=== PATIENT | male | born 1975 | race Caucasian/White ===

== ENCOUNTER → 2016-04-28 | Outpatient (CLI) | payer MEDICAID | END | disposition home or self-care (01) | LOC: LAB 16:42 | PROVIDERS: ATTEND Internal Medicine Critical Care Medicine | DX: G47.33 Obstructive sleep apnea (adult) (pediatric) (principal) | CPT/HCPCS: 82607; 82728; 82746; 83540; 83550 ==

== ENCOUNTER → 2016-06-16 | Outpatient (CLI) | payer MEDICAID ==
[2016-06-16 08:42] LABS: Basophils % (A) 1 %; CH 28.1; CHCM 33.3; Eosinophils # (A) 0.2 k/uL (0-0.7); Eosinophils % (A) 3 %; HCT 44.3 % (39.0-53.0); HDW 2.89; HGB 14.4 gm/dL (13.0-17.5); Luc # (Auto) 0.09; Luc % (Auto) 2; Lymphocytes # (A) 0.6 k/uL (1.0-4.8); Lymphocytes % (A) 12 %; MCH 27.6 pg (25.0-35.0); MCHC 32.5 g/dL (31.0-37.0); MCV 84.7 fL (80.0-100.0); Monocytes # (A) 0.2 k/uL (0-1.0); Monocytes % (A) 5 %; Neutrophils # (A) 3.7 k/uL (1.3-7.7); Neutrophils % (A) 78 %; RBC 5.23 m/uL (4.30-5.90); RDW 13.3 % (11.5-15.5); WBC 4.8 k/uL (3.8-10.6); WBC (Perox) 4.91
[2016-06-16 11:02] LABS: Hemoglobin A1C 5.1 % (4.2-6.1)
[2016-06-16 11:26] LABS: ALT 40 U/L (21-72); AST 24 U/L (17-59); Alkaline Phosphatase 71 U/L (38-126); Anion Gap 8 mmol/L; Blood Urea Nitrogen 8 mg/dL (9-20); Calcium 8.9 mg/dL (8.4-10.2); Carbon Dioxide 30 mmol/L (22-30); Chloride 104 mmol/L (98-107); Cholesterol 133 mg/dL (<200); Glucose 105 mg/dL (74-99); HDL Cholesterol 42 mg/dL (40-60); Non-African American GFR(MDRD) >60 (>60 ml/min/1.73 sqM); Sodium 142 mmol/L (137-145); Total Bilirubin 0.5 mg/dL (0.2-1.3); Total Protein 6.4 g/dL (6.3-8.2); Triglycerides 80 mg/dL (<150)
[2016-06-16 11:27] LABS: Potassium 4.4 mmol/L (3.5-5.1)
[2016-06-16 11:53] LABS: Prostate Specific Antigen 0.99 ng/mL (0.00-4.00)
== END | disposition home or self-care (01) ==
LOC: LABWHC1 08:03
PROVIDERS: ATTEND Internal Medicine Geriatric Medicine
DX: I10 Essential (primary) hypertension (principal); E78.00 Pure hypercholesterolemia, unspecified; E03.8 Other specified hypothyroidism; N40.0 Benign prostatic hyperplasia without lower urinary tract symptoms; R73.9 Hyperglycemia, unspecified
CPT/HCPCS: 36415; 80053; 80061; 83036; 84153; 84439; 84443; 85025

== ENCOUNTER 2016-07-14 21:32 | Inpatient (IN) | payer MEDICAID ==
[2016-07-14 23:23] LABS: Basophils % (A) 0 %; CH 28.6; CHCM 35.6; Eosinophils # (A) 0.1 k/uL (0-0.7); Eosinophils % (A) 1 %; HCT 46.4 % (39.0-53.0); HDW 3.04; HGB 16.4 gm/dL (13.0-17.5); Luc # (Auto) 0.09; Luc % (Auto) 1; Lymphocytes # (A) 0.3 k/uL (1.0-4.8); Lymphocytes % (A) 3 %; MCH 28.5 pg (25.0-35.0); MCHC 35.5 g/dL (31.0-37.0); MCV 80.4 fL (80.0-100.0); Mean Platelet Volume 7.2; Monocytes # (A) 0.5 k/uL (0-1.0); Monocytes % (A) 4 %; Neutrophils # (A) 10.1 k/uL (1.3-7.7); Neutrophils % (A) 91 %; RBC 5.77 m/uL (4.30-5.90); WBC 11.1 k/uL (3.8-10.6); WBC (Perox) 10.89
[2016-07-14 23:27] LABS: Appearance,Urine Clear (Clear); Bilirubin,Urine Negative (Negative); Glucose,Urine (UA) Negative (Negative); Ketones,Urine Negative (Negative); Leukocyte Esterase,Urine Negative (Negative); Nitrite,Urine Negative (Negative); Protein,Urine Trace (Negative); UA Billing (MACRO vs. MICRO) CHEM; Urobilinogen,Urine <2.0 mg/dL (<2.0)
[2016-07-14 23:32] LABS: ALT 42 U/L (21-72); AST 29 U/L (17-59); Alkaline Phosphatase 85 U/L (38-126); Anion Gap 14 mmol/L; Blood Urea Nitrogen 11 mg/dL (9-20); Calcium 9.3 mg/dL (8.4-10.2); Carbon Dioxide 23 mmol/L (22-30); Chloride 103 mmol/L (98-107); Glucose 105 mg/dL (74-99); Magnesium 1.7 mg/dL (1.6-2.3); Non-African American GFR(MDRD) >60 (>60 ml/min/1.73 sqM); Potassium 3.9 mmol/L (3.5-5.1); Sodium 140 mmol/L (137-145); Total Bilirubin 1.7 mg/dL (0.2-1.3)
[2016-07-14] MEDS ORDERED: FAMOTIDINE 20 MG/2 ML VIAL IV STA (23:34)
[2016-07-14] MEDS ORDERED: ONDANSETRON 4 MG/2 ML VIAL IVP STA (23:34)
--- NOTE | 2016-07-14 23:35 | ED ---
General Adult HPI - General Chief complaint: Abdominal Pain Stated complaint: wekaness, poss flu Time Seen by Provider: 07/14/16 23:15 Source: patient, RN notes reviewed Mode of arrival: ambulatory Limitations: no limitations - History of Present Illness Initial comments: This is a 41-year-old male who presents with cough, congestion, headache and sore throat along with nausea and diarrhea. Patient states the cough and congestion started on Tuesday and the diarrhea started yesterday. Patient reports chills but denies any measured fevers. Patient states he has an ileostomy which has been producing more liquid stool usual. Patient denies any hematochezia. Patient denies any vomiting but does admit to some mild nausea. Patient also admits to a headache and sore throat. Patient states he does have abdominal pain but he describes it as crampy and related to the diarrhea symptoms. Patient states he has a history of gastric sleeve. Patient denies any recent shortness breath, chest pain, back pain, numbness, tingling, hematuria, or visual changes, or any other complaints. - Related Data Home Medications Medication Instructions Recorded Confirmed Ascorbic Acid [Vitamin C] 500 mg PO DAILY 07/14/16 07/14/16 Calcium/Magnesium/Zinc 1 tab PO DAILY 07/14/16 07/14/16 [Qiythjw-Cqxhwpusv-Ijli Tablet] Doxycycline Hyclate 100 mg PO DAILY 07/14/16 07/14/16 clonazePAM [KlonoPIN] 0.5 mg PO HS 07/14/16 07/14/16 Allergies Allergy/AdvReac Type Severity Reaction Status Date / Time sulfamethoxazole AdvReac Vomiting Verified 07/14/16 21:58 [From Bactrim] trimethoprim [From Bactrim] AdvReac Vomiting Verified 07/14/16 21:58 Review of Systems ROS Statement: Those systems with pertinent positive or pertinent negative responses have been documented in the HPI. ROS Other: All systems not noted in ROS Statement are negative. Past Medical History Past Medical History: No Reported History History of Any Multi-Drug Resistant Organisms: None Reported Past Surgical History: Bariatric Surgery, Cholecystectomy Additional Past Surgical History / Comment(s): ileostomy Past Psychological History: No Psychological Hx Reported Smoking Status: Never smoker Past Alcohol Use History: None Reported Past Drug Use History: None Reported General Exam - General Exam Comments Initial Comments: General: The patient is awake and alert, in no distress, and does not appear acutely ill. Eye: Pupils are equal, round and reactive to light, extra-ocular movements are intact. No nystagmus. There is normal conjunctiva bilaterally. No signs of icterus. Ears: TMs pink and pearly with intact cone of light bilaterally. Normal external ear canals Nose: Nasal turbinates pink and moist Mouth and throat: There are moist mucous membranes and no oral lesions. Neck: The neck is supple, there is no tenderness or JVD. Cardiovascular: There is a regular rate and rhythm. No murmur, rub or gallop is appreciated. Respiratory: Lungs are clear to auscultation, respirations are non-labored, breath sounds are equal. No wheezes, stridor, rales, or rhonchi. Gastrointestinal: Mild generalized tenderness to the abdomen. Ileostomy present and intact. Clear loose stool present in ileostomy. Soft, non- distended abdomen without masses or organomegaly noted. There is no rebound or guarding present. No CVA tenderness. Bowel sounds are unremarkable. Musculoskeletal: Normal ROM, no tenderness. Strength 5/5. Sensation intact. Radial pulses equal bilaterally 2+. Neurological: A&O x 3. CN II-XII intact, There are no obvious motor or sensory deficits. Coordination appears grossly intact. Speech is normal. Skin: Skin is warm and dry and no rashes or lesions are noted. Psychiatric: Cooperative, appropriate mood & affect, normal judgment. Limitations: no limitations Course Vital Signs 07/14/16 07/15/16 07/15/16 21:40 00:02 02:03 Temperature 99.2 F 98.9 F 98.4 F Pulse Rate 18 L 104 H 103 H Respiratory 18 18 18 Rate Blood Pressure 132/88 128/77 128/77 O2 Sat by Pulse 96 95 94 L Oximetry 07/15/16 02:33 Temperature 98.3 F Pulse Rate 106 H Respiratory 20 Rate Blood Pressure 127/81 O2 Sat by Pulse 96 Oximetry Medical Decision Making - Medical Decision Making This is a 41-year-old male presents with flulike symptoms along with diarrhea and nausea. On physical exam patient is well-appearing and afebrile in the EC. Mild generalized tenderness to the abdomen. Ileostomy present and intact. Clear loose stool present. Soft, non-distended abdomen without masses or organomegaly noted. There is no rebound or guarding present. No CVA tenderness. Bowel sounds are unremarkable. Basic labs are drawn and reviewed. Patient is given fluids in the EC. Patient was given Pepcid and Zofran. Influenza was checked and came back negative. A UA was done and came back negative for any urinary tract infection. Chest x- ray is done and reviewed showing: No active cardiopulmonary disease. Normal heart. Report by Dr. Mccurdy. Patient is still having a lot of abdominal pain after Pepcid and Zofran and patient is given IV Dilaudid, Phenergen and another liter of fluids. Patient was feeling relief after this. A CT of the abdomen and pelvis with contrast was done and reviewed showing: #1 postsurgical changes including subtotal colectomy and right-sided diverting ileostomy. As above, scattered borderline prominent air and fluid-filled small bowel loops for which the possibility of a low-grade or incomplete small bowel obstruction is not excluded. #2 previous gastric banding, with mild distal esophageal wall thickening that may represent mild esophagitis. #3 additional findings as above includes mild splenomegaly. Report by Dr. Villanueva. At this time I discussed this case with attending physician Dr. Malik who also examined the patient and agrees with patient admission. Dr. Heredia spoke with Dr. Echols regarding patient admission for surgical consult, NPO and pain control. At this time patient will be admitted as an inpatient. Patient was receptive to this plan. - Lab Data Result diagrams: 07/14/16 22:39 07/14/16 22:39 Lab Results 07/14/16 07/14/16 07/14/16 Range/Units 22:39 22:39 22:39 WBC 11.1 H (3.8-10.6) k/uL RBC 5.77 (4.30-5.90) m/uL Hgb 16.4 (13.0-17.5) gm/dL Hct 46.4 (39.0-53.0) % MCV 80.4 (80.0-100.0) fL MCH 28.5 (25.0-35.0) pg MCHC 35.5 (31.0-37.0) g/dL RDW 14.0 (11.5-15.5) % Plt Count 166 (150-450) k/uL Neutrophils % 91 % Lymphocytes % 3 % Monocytes % 4 % Eosinophils % 1 % Basophils % 0 % Neutrophils # 10.1 H (1.3-7.7) k/uL Lymphocytes # 0.3 L (1.0-4.8) k/uL Monocytes # 0.5 (0-1.0) k/uL Eosinophils # 0.1 (0-0.7) k/uL Basophils # 0.0 (0-0.2) k/uL Sodium 140 (137-145) mmol/L Potassium 3.9 (3.5-5.1) mmol/L Chloride 103 (98-107) mmol/L Carbon Dioxide 23 (22-30) mmol/L Anion Gap 14 mmol/L BUN 11 (9-20) mg/dL Creatinine 1.10 (0.66-1.25) mg/dL Est GFR (MDRD) Af Amer >60 (>60 ml/min/1.73 sqM) Est GFR (MDRD) Non-Af >60 (>60 ml/min/1.73 sqM) Glucose 105 H (74-99) mg/dL Plasma Lactic Acid Mau (0.7-2.0) mmol/L Calcium 9.3 (8.4-10.2) mg/dL Magnesium 1.7 (1.6-2.3) mg/dL Total Bilirubin 1.7 H (0.2-1.3) mg/dL AST 29 (17-59) U/L ALT 42 (21-72) U/L Alkaline Phosphatase 85 (38-126) U/L Total Protein 7.0 (6.3-8.2) g/dL Albumin 4.2 (3.5-5.0) g/dL Amylase (30-110) U/L Lipase (23-300) U/L Urine Color Yellow Urine Appearance Clear (Clear) Urine pH 6.0 (5.0-8.0) Ur Specific Malott 1.020 (1.001-1.035) Urine Protein Trace H (Negative) Urine Glucose (UA) Negative (Negative) Urine Ketones Negative (Negative) Urine Blood Negative (Negative) Urine Nitrite Negative (Negative) Urine Bilirubin Negative (Negative) Urine Urobilinogen <2.0 (<2.0) mg/dL Ur Leukocyte Esterase Negative (Negative) Influenza Type A RNA (Not Detectd) Influenza Type B (PCR) (Not Detectd) 07/14/16 07/14/1617 Range/Units 22:39 22:39 22:39 WBC (3.8-10.6) k/uL RBC (4.30-5.90) m/uL Hgb (13.0-17.5) gm/dL Hct (39.0-53.0) % MCV (80.0-100.0) fL MCH (25.0-35.0) pg MCHC (31.0-37.0) g/dL RDW (11.5-15.5) % Plt Count (150-450) k/uL Neutrophils % % Lymphocytes % % Monocytes % % Eosinophils % % Basophils % % Neutrophils # (1.3-7.7) k/uL Lymphocytes # (1.0-4.8) k/uL Monocytes # (0-1.0) k/uL Eosinophils # (0-0.7) k/uL Basophils # (0-0.2) k/uL Sodium (137-145) mmol/L Potassium (3.5-5.1) mmol/L Chloride (98-107) mmol/L Carbon Dioxide (22-30) mmol/L Anion Gap mmol/L BUN (9-20) mg/dL Creatinine (0.66-1.25) mg/dL Est GFR (MDRD) Af Amer (>60 ml/min/1.73 sqM) Est GFR (MDRD) Non-Af (>60 ml/min/1.73 sqM) Glucose (74-99) mg/dL Plasma Lactic Acid Mau 1.1 (0.7-2.0) mmol/L Calcium (8.4-10.2) mg/dL Magnesium (1.6-2.3) mg/dL Total Bilirubin (0.2-1.3) mg/dL AST (17-59) U/L ALT (21-72) U/L Alkaline Phosphatase (38-126) U/L Total Protein (6.3-8.2) g/dL Albumin (3.5-5.0) g/dL Amylase 58 (30-110) U/L Lipase 65 (23-300) U/L Urine Color Urine Appearance (Clear) Urine pH (5.0-8.0) Ur Specific Malott (1.001-1.035) Urine Protein (Negative) Urine Glucose (UA) (Negative) Urine Ketones (Negative) Urine Blood (Negative) Urine Nitrite (Negative) Urine Bilirubin (Negative) Urine Urobilinogen (<2.0) mg/dL Ur Leukocyte Esterase (Negative) Influenza Type A RNA Not Detected (Not Detectd) Influenza Type B (PCR) Not Detected (Not Detectd) Disposition Clinical Impression: Small bowel obstruction Disposition: ADMITTED IP TO THIS HOSP Referrals: Jc Echols MD [Primary Care Provider] - 1-2 days Decision Time: 02:29
[2016-07-14] MEDS ORDERED: SODIUM CHLORIDE 0.9% 1,000 ML IV ONE (23:56)
--- NOTE | 2016-07-14 23:59 | XR ---
EXAMINATION TYPE: XR chest 2V DATE OF EXAM: 07/14/2016 11:53 PM COMPARISON: NONE HISTORY: Weakness TECHNIQUE: Frontal and lateral views of the chest are obtained. FINDINGS: Heart and mediastinum are normal. Lungs are clear. Diaphragm is normal. There is a mild th oracic kyphotic curvature. There are no hilar masses. There is no sign of pleural effusion. IMPRESSION: No active cardiopulmonary disease. Normal heart.
[2016-07-15] MEDS ORDERED: HYDROmorphone 1 MG/ML 1 ML SYRINGE IVP STA ×2 (00:34→02:20)
[2016-07-15] MEDS ORDERED: RX INFO: IV CONTRAST WAS GIVEN 1 EACH MISC MISCELLANE PRN (00:48)
[2016-07-15] MEDS ORDERED: PROMETHAZINE INJ 6.25 MG in SODIUM CHLORIDE 0.9% 50 ML IVPB STA (01:04)
[2016-07-15 01:05] LABS: Amylase 58 U/L (30-110)
--- NOTE | 2016-07-15 01:53 | CT ---
EXAM: CT Abdomen and Pelvis With Intravenous Contrast. CLINICAL HISTORY: Reason: Pain TECHNIQUE: Axial computed tomography images of the abdomen and pelvis with intravenous contrast. CTDI is 76.50 mGy and DLP is 3173.20 mGy-cm This CT exam was performed using one or more of the following dose reduction techniques: automated exposure control, adjustment of the mA and/or kV according to patient size, and/or use of iterative reconstruction technique. COMPARISON: No relevant prior studies available. FINDINGS: Lower thorax: Minimal dependent changes. ABDOMEN: Liver: No focal lesion. There may be mild hepatic steatosis. Gallbladder and bile ducts: Prior cholecystectomy. No ductal dilation. Pancreas: Unremarkable. No mass. No ductal dilation. Spleen: Mild splenomegaly measuring 14.0 cm in length on sagittal image 99. Adrenals: Unremarkable. No mass. Kidneys and ureters: 3 subcentimeter exophytic hypodense foci are seen along the posterior left kidney, too small to accurately characterize, statistically small cysts. The kidneys are otherwise symmetric. No hydronephrosis. Stomach and bowel: Previous gastric banding, just superior to which there is mild circumferential distal esophageal wall thickening. Previous bowel resection with what appears to be a subtotal colectomy, and oversewn decompressed remaining rectosigmoid in the pelvis. There is a right periumbilical diverting ileostomy within which there is slight redundancy of the ostomy loop without evidence of obstruction seen. There are air and fluid-filled small bowel loops throughout, measuring up to 2.5 cm in the left mid abdomen and pelvis, whereas other loops are of smaller caliber, for which the possibility of a low-grade or incomplete small bowel obstruction is not entirely excluded. Several small bowel loops do appear to be adhesed to the anterior abdominal wall. There is no focal wall thickening or perienteric stranding seen. Appendix: See above. PELVIS: Bladder: Unremarkable. No mass. Reproductive: Unremarkable as visualized. ABDOMEN and PELVIS: Intraperitoneal space: No free air. No significant fluid collection. Bones/joints: Accentuated lower thoracic kyphosis with multilevel spondylosis and mild ankylosis of the thoracolumbar spine. The bones are diffusely osteopenic. There is no acute fracture seen. Soft tissues: See above. Vasculature: No abdominal aortic aneurysm. Lymph nodes: Unremarkable. No enlarged lymph nodes. IMPRESSION: 1. Postsurgical changes including subtotal colectomy and right-sided diverting ileostomy. As above, scattered borderline prominent air and fluid-filled small bowel loops for which the possibility of a low-grade or incomplete small bowel obstruction is not excluded. 2. Previous gastric banding, with mild distal esophageal wall thickening that may represent mild esophagitis. 3. Additional findings as above includes mild splenomegaly.
[2016-07-15] MEDS ORDERED: IBUPROFEN 400 MG TAB PO PRN (02:22)
[2016-07-15] MEDS ORDERED: NALOXONE 0.4 MG/ML 1 ML VIAL IV PRN (02:22)
[2016-07-15] MEDS ORDERED: ACETAMINOPHEN TAB 325 MG TAB PO PRN (02:22)
[2016-07-15] MEDS ORDERED: Acetaminophen-Codeine 300-30mg TAB PO PRN (02:22)
[2016-07-15] MEDS ORDERED: SODIUM CHLORIDE 0.9% 1,000 ML IV SCH (02:30)
[2016-07-15] MEDS: SODIUM CHLORIDE 0.9% 1,000 ML IV SCH ×2 (03:52→17:56)
[2016-07-15 04:07] VITALS: BMI 43.6
[2016-07-15] MEDS ORDERED: PROMETHAZINE 25 MG TAB PO PRN (06:00)
[2016-07-15] MEDS: ONDANSETRON 4 MG/2 ML VIAL IVP PRN ×2 (06:19→20:08)
[2016-07-15] MEDS: HYDROmorphone 1 MG/ML 1 ML SYRINGE IV PRN ×2 (06:22→11:18)
[2016-07-15] MEDS ORDERED: DOXYCYCLINE 50 MG CAP PO SCH (09:00)
[2016-07-15] MEDS ORDERED: NON-FORMULARY DRUG (Calcium/Magnesium/Zinc [Calcium-Magnesium-Zinc Tablet] 1 TAB) PO SCH (09:00)
[2016-07-15] MEDS ORDERED: ASCORBIC ACID 500 MG TAB PO SCH (09:00)
[2016-07-15] MEDS: D5-0.45% NACL WITH KCL 20MEQ/L 1,000 ML IV SCH ×2 (12:26→21:16)
[2016-07-15] MEDS: MAGNESIUM SULFATE-D5W PMX 1 GM in DEXTROSE/WATER 1 100ML.BAG IVPB SCH ×2 (12:26→14:30)
[2016-07-15 13:31] LABS: Magnesium 1.9 mg/dL (1.6-2.3); Phosphorous 3.7 mg/dL (2.5-4.5)
--- NOTE | 2016-07-15 14:56 | P.HPIM ---
History of Present Illness H&P Date: 07/15/16 Chief Complaint: Diarrhea, abdominal pain, nausea This is a 41-year-old male patient of Dr. Echols with a past medical history of ulcerative colitis status post subtotal colectomy and ileostomy in October 2012, LAP-BAND surgery done by Dr. More. Patient states he has been on Remicade and other medications in the past for ulcerative colitis. Patient states that he was in [place] for 1 week and came home on Tuesday. On Tuesday and Tuesday he started having a sore throat and he lost his voice. Then he started having watery stool from his ileostomy to the point he had it empty it every 5 minutes and it was coming out faster than he could replace. This went on all day and up having to leave work. He went home and drink Gatorade and tried to drink as much as he could but it kept getting worse and continued to be watery with copious amounts. He also complains of abdominal pain and nausea without vomiting. He came into [facility] emergency center. Chest x-ray showed no acute cardiopulmonary disease. CAT scan of the abdomen and pelvis which revealed possible low-grade or incomplete small bowel obstruction not excluded. Previous gastric banding with mild distal esophageal wall thickening that may represent mild esophagitis. Mild splenomegaly. White count was 11.1, hemoglobin 16.4, electrolytes within normal limits. Urinalysis negative. Influenza A and B negative. C. difficile toxin negative.. Total bilirubin 1.7. Patient was placed nothing by mouth and started on IV fluids, Zofran for nausea, Dilaudid for pain control and consult with Dr. More. Review of Systems All systems: negative Constitutional: Denies chills, Denies fever Eyes: denies blurred vision, denies pain Ears, nose, mouth and throat: Reports hoarseness, Reports sore throat, Denies dental pain, Denies headache Cardiovascular: Denies chest pain, Denies decreased exercise tolerance, Denies dyspnea on exertion, Denies edema, Denies leg edema, Denies lightheadedness, Denies shortness of breath, Denies syncope Respiratory: Denies cough, Denies cough with sputum, Denies dyspnea, Denies excessive sputum, Denies hemoptysis, Denies home oxygen Gastrointestinal: Reports abdominal pain, Reports diarrhea, Reports nausea, Denies vomiting Genitourinary: Denies dysuria Musculoskeletal: Denies myalgias Integumentary: Denies pruritus, Denies rash Neurological: Denies numbness, Denies weakness Psychiatric: Denies anxiety, Denies depression Endocrine: Denies fatigue, Denies weight change Past Medical History Past Medical History: No Reported History Additional Past Medical History / Comment(s): Ulcerative colitis History of Any Multi-Drug Resistant Organisms: None Reported Past Surgical History: Bariatric Surgery, Cholecystectomy Additional Past Surgical History / Comment(s): Subtotal colectomy and ileostomy in October 2012, LAP-BAND Past Anesthesia/Blood Transfusion Reactions: No Reported Reaction Past Psychological History: No Psychological Hx Reported Smoking Status: Never smoker Past Alcohol Use History: None Reported Additional Past Alcohol Use History / Comment(s): Patient is a lifelong nonsmoker. He denies any medical marijuana, marijuana, street drug or alcohol use. He lives at home with his . Past Drug Use History: None Reported - Past Family History Father Family Medical History: Myocardial Infarction (DE) Additional Family Medical History / Comment(s): Father is alive at age 67 with history of heart problems status post loop recorder with recent CVA, coronary artery disease status post stent, hyperlipidemia, hypertension. Mother Family Medical History: Deep Vein Thrombosis (DVT), Myocardial Infarction (DE) Additional Family Medical History / Comment(s): Mother is alive at age 64 with history of coronary artery disease, obesity and irritable bowel syndrome. Brother(s) Additional Family Medical History / Comment(s): Patient has 2 brothers and 1 sister with no major medical problems. Patient has one 13-year-old child with no major medical problems. Medications and Allergies Home Medications Medication Instructions Recorded Confirmed Type Ascorbic Acid [Vitamin C] 500 mg PO DAILY 07/14/16 07/14/16 History Calcium/Magnesium/Zinc 1 tab PO DAILY 07/14/16 07/14/16 History [Cyyzjhm-Gwbilryav-Jrjo Tablet] Doxycycline Hyclate 10 mg PO DAILY 07/14/16 07/15/16 History clonazePAM [KlonoPIN] 0.5 mg PO HS 07/14/16 07/14/16 History Allergies Allergy/AdvReac Type Severity Reaction Status Date / Time sulfamethoxazole AdvReac Vomiting Verified 07/14/16 21:58 [From Bactrim] trimethoprim [From Bactrim] AdvReac Vomiting Verified 07/14/16 21:58 Physical Exam Vitals: Vital Signs Temp Pulse Resp BP Pulse Ox 07/15/16 07:00 98.3 F 80 16 121/77 98 07/15/16 04:00 98.4 F 106 H 16 114/82 96 Intake and Output 07/14/16 07/15/16 07/15/16 22:59 06:59 14:59 Intake Total 200 Balance 200 Intake: IV 200 Sodium Chloride 0.9% 1, 200 000 ml @ 100 mls/hr IV . Q10H [facility], [facility] Rx#:[id number] Other: Voiding Method Toilet # Voids 1 Weight 154.221 kg Gen: This is a 41-year-old morbidly obese male. He is in bed and appears to be slightly uncomfortable. No acute distress. HEENT: Head is atraumatic, normocephalic. Pupils equal, round. Sclerae is anicteric. Conjunctiva slightly pale. Mucous members of the mouth are somewhat dry. No thrush noted. NECK: Supple. No JVD. No lymphadenopathy. No thyromegaly. LUNGS: Clear to auscultation. No wheezes or rhonchi. No intercostal retractions. HEART: Regular rate and rhythm. No murmur. ABDOMEN: Soft. Bowel sounds are present. No masses. Generalized tenderness. Ileostomy to the right lower quadrant. Stoma beefy red. EXTREMITIES: No pedal edema. No calf tenderness. Dorsalis pedis +2 bilaterally. NEUROLOGICAL: Patient is awake, alert and oriented x3. Cranial nerves 2 through 12 are grossly intact. Results CBC & Chem 7: 07/14/16 22:39 07/14/16 22:39 Thrombosis Risk Factor Assmnt - DVT/VTE Prophylaxis DVT/VTE Prophylaxis: Pharmacologic Prophylaxis ordered - Choose All That Apply Any of the Below Risk Factors Present?: Yes Each Factor Represents 1 point: Age 41-60 years, Obesity (BMI >25), Serious lung disease incl. pneumonia (< 1month) Other Risk Factors: Yes Each Risk Factor Represents 3 Points: Family history of DVT/PE Thrombosis Risk Factor Assessment Total Risk Factor Score: 6 Thrombosis Risk Factor Assessment Level: High Risk Assessment and Plan Plan: 1. Possible partial small bowel obstruction presenting with diarrhea and dehydration. Continue IV fluids of D5 and half-normal saline with 20 of KCl at 150 mL per hour. Continue Zofran for nausea and Dilaudid for pain. Consult with Dr. More. C. difficile toxin negative. 2. History of ulcerative colitis status post subtotal colectomy and ileostomy, stable. 3. Lower extremity cramps with hypomagnesemia status post replacement. 4. Recent upper respiratory infection, pharyngitis, stable. 5. DVT prophylaxis. Heparin subcu. 6. Gastrointestinal prophylaxis. Continue Protonix. Patient will be admitted to the hospital for a minimum of 2 night stay. Discharge plan: Return home Impression and plan of care have been directed as dictated by the signing physician. Michelle Fairbanks nurse practitioner acting as scribe for signing physician. Time with Patient: Greater than 30
[2016-07-15] MEDS: HEPARIN SODIUM,PORCINE 5,000 UNIT/ML 1 ML VIAL SQ SCH ×2 (16:47→23:16)
[2016-07-15] MEDS: clonazePAM 0.5 MG TAB PO SCH (21:14)
[2016-07-16] MEDS: D5-0.45% NACL WITH KCL 20MEQ/L 1,000 ML IV SCH ×5 (02:56→21:34)
[2016-07-16] MEDS: PANTOPRAZOLE 40 MG/10 ML VIAL IVP SCH (07:39)
[2016-07-16] MEDS: HEPARIN SODIUM,PORCINE 5,000 UNIT/ML 1 ML VIAL SQ SCH ×2 (07:40→15:46)
[2016-07-16 07:47] LABS: Basophils % (A) 1 %; CH 28.1; CHCM 33.2; Eosinophils # (A) 0.2 k/uL (0-0.7); Eosinophils % (A) 5 %; HCT 43.4 % (39.0-53.0); HDW 3.05; HGB 14.9 gm/dL (13.0-17.5); Luc # (Auto) 0.15; Luc % (Auto) 3; Lymphocytes # (A) 0.6 k/uL (1.0-4.8); Lymphocytes % (A) 12 %; MCH 29.2 pg (25.0-35.0); MCHC 34.4 g/dL (31.0-37.0); MCV 84.8 fL (80.0-100.0); Mean Platelet Volume 7.1; Monocytes # (A) 0.3 k/uL (0-1.0); Monocytes % (A) 7 %; Neutrophils # (A) 3.4 k/uL (1.3-7.7); Neutrophils % (A) 73 %; RBC 5.12 m/uL (4.30-5.90); RDW 13.8 % (11.5-15.5); WBC 4.7 k/uL (3.8-10.6)
[2016-07-16 07:52] LABS: ALT 34 U/L (21-72); AST 27 U/L (17-59); Alkaline Phosphatase 62 U/L (38-126); Anion Gap 7 mmol/L; Blood Urea Nitrogen 12 mg/dL (9-20); Calcium 8.5 mg/dL (8.4-10.2); Carbon Dioxide 28 mmol/L (22-30); Chloride 104 mmol/L (98-107); Glucose 108 mg/dL (74-99); Non-African American GFR(MDRD) >60 (>60 ml/min/1.73 sqM); Potassium 5.1 mmol/L (3.5-5.1); Sodium 139 mmol/L (137-145); Total Bilirubin 1.2 mg/dL (0.2-1.3)
--- NOTE | 2016-07-16 08:20 | CONS ---
DATE OF CONSULTATION: 07/15/2016 REASON FOR CONSULTATION: Partial small bowel obstruction. HISTORY OF PRESENT ILLNESS: This is a 41-year-old male, well-known to myself. Patient has a previous history of lap band surgery and subtotal colectomy for ulcerative colitis. The patient states that he noticed crampy abdominal pain and intermittent waves of high output through his ileostomy. The patient had a CAT scan performed last night which shows evidence of partial small bowel obstruction. Past medical history is significant for ulcerative colitis. PAST SURGICAL HISTORY: Subtotal colectomy, lap band surgery, cholecystectomy. CURRENT MEDICATIONS: Vitamin C, doxycycline, Klonopin. DRUG ALLERGIES: BACTRIM. On exam, his vital signs appear stable. Temp is 98.3, pulse is 80, respiratory rate 16, blood pressure is 121/77. Head and neck shows no scleral icterus. Chest is clear. Abdomen is soft. There is prolapse of his ileostomy. There is some mild tenderness throughout. There is no rebound or guarding. LABORATORY: White count is 11.1, hemoglobin is 16.4, which, neutrophil count is 10.1, electrolytes are within normal limits, C. diff is negative. CT scan of the abdomen was performed. There appears to be evidence of low-grade or partial small bowel obstruction. ASSESSMENT AND PLAN: Partial small bowel obstruction. The patient will receive nasogastric tube decompression. He will remain n.p.o. We will re-evaluate him in the a.m.
--- NOTE | 2016-07-16 09:58 | XR ---
EXAMINATION TYPE: XR abdomen complete w decub DATE OF EXAM ORDERED: 07/16/2016 9:51 AM HISTORY: Partial small bowel obstruction. COMPARISON: None. FINDINGS: There is a lap band in place. The vein has a normal appearance. There is been a previous c holecystectomy. An NG tube is present. Its tip is in the stomach. The abdominal gas pattern is within normal limits. There is no evidence of obstruction or free air. T here are phleboliths within the pelvis. There is a focal density overlying the right midabdomen. I suspect this represents the patient's osto my bag. IMPRESSION: NO EVIDENCE OF BOWEL OBSTRUCTION AT THIS TIME.
[2016-07-16] MEDS: BENZOCAINE/MENTHOL LOZENG 1 EACH LOZENGE MUCOUS MEM PRN ×3 (13:09→20:30)
--- NOTE | 2016-07-16 15:49 | P.PN ---
Subjective This is a 41-year-old male patient of Dr. Echols with a past medical history of ulcerative colitis status post subtotal colectomy and ileostomy in October 2012, LAP-BAND surgery done by Dr. More. Patient states he has been on Remicade and other medications in the past for ulcerative colitis. Patient states that he was in [place] for 1 week and came home on Tuesday. On Tuesday and Tuesday he started having a sore throat and he lost his voice. Then he started having watery stool from his ileostomy to the point he had it empty it every 5 minutes and it was coming out faster than he could replace. This went on all day and up having to leave work. He went home and drink Gatorade and tried to drink as much as he could but it kept getting worse and continued to be watery with copious amounts. He also complains of abdominal pain and nausea without vomiting. He came into [facility] emergency center. Chest x-ray showed no acute cardiopulmonary disease. CAT scan of the abdomen and pelvis which revealed possible low-grade or incomplete small bowel obstruction not excluded. Previous gastric banding with mild distal esophageal wall thickening that may represent mild esophagitis. Mild splenomegaly. White count was 11.1, hemoglobin 16.4, electrolytes within normal limits. Urinalysis negative. Influenza A and B negative. C. difficile toxin negative.. Total bilirubin 1.7. Patient was placed nothing by mouth and started on IV fluids, Zofran for nausea, Dilaudid for pain control and consult with Dr. More. 07/16: Patient continues to have tenderness to the abdomen but a little bit better from yesterday. NG tube has been placed and has had significant output from this. Abdominal x-rays shows no evidence of bowel obstruction. Patient has been seen by Dr. More. Objective - Vital Signs Vital signs: Vital Signs Temp 97.8 F 07/16/16 07:00 Pulse 95 07/16/16 07:00 Resp 15 07/16/16 07:00 BP 97/60 07/16/16 07:00 Pulse Ox 95 07/16/16 07:00 Intake & Output 07/15/16 07/16/16 07/16/16 18:59 06:59 18:59 Intake Total 950 2250 Balance 950 2250 Weight 154.221 kg Intake: IV 400 525 Sodium Chloride 0.9% 1, 400 525 000 ml @ 150 mls/hr IV . Q6H40M VIDA Rx#:[id number] Intake, IV Titration 550 1725 Amount D5-0.45% NaCl with KCl 450 1725 20Meq/l 1,000 ml @ 150 mls/hr IV .Q6H40M VIDA Rx# :[id number] Magnesium Sulfate-D5w Pmx 100 1 gm In Dextrose/Water 1 100ml.bag @ 100 mls/hr IVPB Q1H VIDA Rx#: [id number] Other: Voiding Method Toilet Toilet # Voids 1 - Exam Gen: This is a 41-year-old morbidly obese male. He is in bed and appears to be slightly uncomfortable. No acute distress. HEENT: Head is atraumatic, normocephalic. Pupils equal, round. Sclerae is anicteric. Conjunctiva slightly pale. Mucous members of the mouth are somewhat dry. No thrush noted. NECK: Supple. No JVD. No lymphadenopathy. No thyromegaly. LUNGS: Clear to auscultation. No wheezes or rhonchi. No intercostal retractions. HEART: Regular rate and rhythm. No murmur. ABDOMEN: Soft. Bowel sounds are present. No masses. Generalized tenderness. Ileostomy to the right lower quadrant. Stoma beefy red. EXTREMITIES: No pedal edema. No calf tenderness. Dorsalis pedis +2 bilaterally. NEUROLOGICAL: Patient is awake, alert and oriented x3. Cranial nerves 2 through 12 are grossly intact. - Labs CBC & Chem 7: 07/16/16 07:04 07/16/16 07:03 Labs: Abnormal Lab Results - Last 24 Hours (Table) 07/16/16 07/16/16 Range/Units 07:03 07:04 Plt Count 135 L (150-450) k/uL Lymphocytes # 0.6 L (1.0-4.8) k/uL Glucose 108 H (74-99) mg/dL Total Protein 6.0 L (6.3-8.2) g/dL Albumin 3.4 L (3.5-5.0) g/dL Assessment and Plan Plan: 1. Possible partial small bowel obstruction or ileus presenting with diarrhea and dehydration. Continue IV fluids of D5 and half-normal saline with 20 of KCl at 150 mL per hour. Continue Zofran for nausea and Dilaudid for pain. Consult with Dr. More. C. difficile toxin negative. NG tube with large output. 2. History of ulcerative colitis status post subtotal colectomy and ileostomy, stable. 3. Lower extremity cramps with hypomagnesemia status post replacement. 4. Recent upper respiratory infection, pharyngitis, stable. 5. DVT prophylaxis. Heparin subcu. 6. Gastrointestinal prophylaxis. Continue Protonix. Discharge plan: Return home Impression and plan of care have been directed as dictated by the signing physician. Michelle Fairbanks nurse practitioner acting as scribe for signing physician. Time with Patient: Greater than 30
--- NOTE | 2016-07-16 16:22 | P.PN ---
Subjective Principal diagnosis: Small bowel obstruction The patient states he feels better since his nasogastric tube was placed yesterday. Apparently he emptied out 900 mL during the day. He has had minimal output through his ileostomy. Objective - Vital Signs Vital signs: Vital Signs Temp 97.8 F 07/16/16 07:00 Pulse 95 07/16/16 07:00 Resp 15 07/16/16 07:00 BP 97/60 07/16/16 07:00 Pulse Ox 95 07/16/16 07:00 Intake & Output 07/15/16 07/16/16 07/16/16 18:59 06:59 18:59 Intake Total 950 2250 1200 Output Total 700 Balance 950 2250 500 Weight 154.221 kg Intake: IV 695 377 7978 Sodium Chloride 0.9% 1, 505 644 9126 000 ml @ 150 mls/hr IV . Q6H40M VIDA Rx#:[id number] Intake, IV Titration 550 1725 Amount D5-0.45% NaCl with KCl 450 1725 20Meq/l 1,000 ml @ 150 mls/hr IV .Q6H40M VIDA Rx# :[id number] Magnesium Sulfate-D5w Pmx 100 1 gm In Dextrose/Water 1 100ml.bag @ 100 mls/hr IVPB Q1H VIDA Rx#: [id number] Output: Gastric Drainage 700 Other: Voiding Method Toilet Toilet # Voids 1 - Gastrointestinal Gastrointestinal Comment(s): Abdomen soft. There is minimal tenderness. There is no rebound or guarding. There is some bilious fluid in his ileostomy bag - Labs CBC & Chem 7: 07/16/16 07:04 07/16/16 07:03 Labs: Abnormal Lab Results - Last 24 Hours (Table) 07/16/16 07/16/16 Range/Units 07:03 07:04 Plt Count 135 L (150-450) k/uL Lymphocytes # 0.6 L (1.0-4.8) k/uL Glucose 108 H (74-99) mg/dL Total Protein 6.0 L (6.3-8.2) g/dL Albumin 3.4 L (3.5-5.0) g/dL Assessment and Plan Plan: Social small bowel junction. Patient will remain nothing by mouth with NG tube. When he has significant gas in his ileostomy bag we will remove his nasogastric tube.
[2016-07-16] MEDS: clonazePAM 0.5 MG TAB PO SCH (21:34)
[2016-07-17] MEDS: HEPARIN SODIUM,PORCINE 5,000 UNIT/ML 1 ML VIAL SQ SCH ×3 (00:17→17:07)
[2016-07-17] MEDS: D5-0.45% NACL WITH KCL 20MEQ/L 1,000 ML IV SCH ×2 (05:41→18:44)
--- NOTE | 2016-07-17 07:48 | P.PN ---
Subjective The patient is feeling better today. He is beginning to have some normal ostomy output. His pain is improved. Objective - Vital Signs Vital signs: Vital Signs Temp 99.7 F H 07/17/16 07:00 Pulse 75 07/17/16 07:00 Resp 16 07/17/16 07:00 BP 120/70 07/17/16 07:00 Pulse Ox 95 07/17/16 07:00 Intake & Output 07/16/16 07/17/16 07/17/16 18:59 06:59 18:59 Intake Total 1200 1725 Output Total 700 175 Balance 500 1550 Weight 154.221 kg Intake: IV 1200 Sodium Chloride 0.9% 1, 1200 000 ml @ 150 mls/hr IV . Q6H40M VIDA Rx#:[id number] Intake, IV Titration 1725 Amount D5-0.45% NaCl with KCl 1725 20Meq/l 1,000 ml @ 150 mls/hr IV .Q6H40M VIDA Rx# :[id number] Output: Gastric Drainage 700 175 Other: Voiding Method Toilet Toilet - Constitutional General appearance: Present: cooperative, no acute distress - Gastrointestinal Gastrointestinal Comment(s): Normal-appearing ileostomy output General gastrointestinal: Present: normal bowel sounds, soft - Labs CBC & Chem 7: 07/16/16 07:04 07/16/16 07:03 Labs: Abnormal Lab Results - Last 24 Hours (Table) 07/16/16 07/16/16 Range/Units 07:03 07:04 Plt Count 135 L (150-450) k/uL Lymphocytes # 0.6 L (1.0-4.8) k/uL Glucose 108 H (74-99) mg/dL Total Protein 6.0 L (6.3-8.2) g/dL Albumin 3.4 L (3.5-5.0) g/dL Assessment and Plan (1) Small bowel obstruction Status: Acute Plan: The patient appears to be improving. We'll clamp his NG tube and if he tolerates that discontinue it later today and began clear liquid diet. Further recommendations to follow
[2016-07-17] MEDS: PANTOPRAZOLE 40 MG/10 ML VIAL IVP SCH (08:37)
[2016-07-17] MEDS: BENZOCAINE/MENTHOL LOZENG 1 EACH LOZENGE MUCOUS MEM PRN ×3 (08:40→17:08)
--- NOTE | 2016-07-17 13:18 | P.PN ---
Subjective This is a 41-year-old male patient of Dr. Echols with a past medical history of ulcerative colitis status post subtotal colectomy and ileostomy in October 2012, LAP-BAND surgery done by Dr. More. Patient states he has been on Remicade and other medications in the past for ulcerative colitis. Patient states that he was in [place] for 1 week and came home on Tuesday. On Tuesday and Tuesday he started having a sore throat and he lost his voice. Then he started having watery stool from his ileostomy to the point he had it empty it every 5 minutes and it was coming out faster than he could replace. This went on all day and up having to leave work. He went home and drink Gatorade and tried to drink as much as he could but it kept getting worse and continued to be watery with copious amounts. He also complains of abdominal pain and nausea without vomiting. He came into [facility] emergency center. Chest x-ray showed no acute cardiopulmonary disease. CAT scan of the abdomen and pelvis which revealed possible low-grade or incomplete small bowel obstruction not excluded. Previous gastric banding with mild distal esophageal wall thickening that may represent mild esophagitis. Mild splenomegaly. White count was 11.1, hemoglobin 16.4, electrolytes within normal limits. Urinalysis negative. Influenza A and B negative. C. difficile toxin negative.. Total bilirubin 1.7. Patient was placed nothing by mouth and started on IV fluids, Zofran for nausea, Dilaudid for pain control and consult with Dr. More. 07/16: Patient continues to have tenderness to the abdomen but a little bit better from yesterday. NG tube has been placed and has had significant output from this. Abdominal x-rays shows no evidence of bowel obstruction. Patient has been seen by Dr. More. 07/17: Patient is feeling better today. He is having more normal stools from his ileostomy. He denies noting any blood in the stool. Dr. Taylor his ordered for NG tube to be clamped and may end up being just continued this afternoon and start clear liquid diet. Objective - Vital Signs Vital signs: Vital Signs Temp 99.7 F H 07/17/16 07:00 Pulse 75 07/17/16 07:00 Resp 16 07/17/16 07:00 BP 120/70 07/17/16 07:00 Pulse Ox 95 07/17/16 07:00 Intake & Output 07/16/16 07/17/16 07/17/16 18:59 06:59 18:59 Intake Total 1200 1725 Output Total 700 175 Balance 500 1550 Weight 154.221 kg Intake: IV 1200 Sodium Chloride 0.9% 1, 1200 000 ml @ 150 mls/hr IV . Q6H40M VIDA Rx#:[id number] Intake, IV Titration 1725 Amount D5-0.45% NaCl with KCl 1725 20Meq/l 1,000 ml @ 150 mls/hr IV .Q6H40M VIDA Rx# :[id number] Output: Gastric Drainage 700 175 Other: Voiding Method Toilet Toilet Toilet # Voids 1 - Exam Gen: This is a 41-year-old morbidly obese male. He is in bed and appears to be slightly uncomfortable. No acute distress. HEENT: Head is atraumatic, normocephalic. Pupils equal, round. Sclerae is anicteric. Conjunctiva slightly pale. Mucous members of the mouth are somewhat dry. No thrush noted. NECK: Supple. No JVD. No lymphadenopathy. No thyromegaly. LUNGS: Clear to auscultation. No wheezes or rhonchi. No intercostal retractions. HEART: Regular rate and rhythm. No murmur. ABDOMEN: Soft. Bowel sounds are present. No masses. Generalized tenderness. Ileostomy to the right lower quadrant. Stoma beefy red. EXTREMITIES: No pedal edema. No calf tenderness. Dorsalis pedis +2 bilaterally. NEUROLOGICAL: Patient is awake, alert and oriented x3. Cranial nerves 2 through 12 are grossly intact. - Labs CBC & Chem 7: 07/16/16 07:04 07/16/16 07:03 Assessment and Plan Plan: 1. Possible partial small bowel obstruction or ileus presenting with diarrhea and dehydration. Continue IV fluids of D5 and half-normal saline with 20 of KCl at 150 mL per hour. Continue Zofran for nausea and Dilaudid for pain. Consult with Dr. More. C. difficile toxin negative. NG tube clamped with possible removal this afternoon. Clear liquid diet. 2. History of ulcerative colitis status post subtotal colectomy and ileostomy, stable. 3. Lower extremity cramps with hypomagnesemia status post replacement. 4. Recent upper respiratory infection, pharyngitis, stable. 5. DVT prophylaxis. Heparin subcu. 6. Gastrointestinal prophylaxis. Continue Protonix. Discharge plan: Return home Impression and plan of care have been directed as dictated by the signing physician. Michelle Fairbanks nurse practitioner acting as scribe for signing physician. Time with Patient: Greater than 30
[2016-07-17] MEDS: clonazePAM 0.5 MG TAB PO SCH (21:37)
[2016-07-18] MEDS: HEPARIN SODIUM,PORCINE 5,000 UNIT/ML 1 ML VIAL SQ SCH ×4 (00:20→23:39)
[2016-07-18] MEDS: D5-0.45% NACL WITH KCL 20MEQ/L 1,000 ML IV SCH (01:09)
[2016-07-18] MEDS: PANTOPRAZOLE 40 MG/10 ML VIAL IVP SCH (07:39)
--- NOTE | 2016-07-18 09:56 | P.PN ---
Progress Note - Text The patient has been tolerating a diet without pain nausea or vomiting. Increasing output of stool and flatus and his ostomy appliance. We will increase his diet. Hopefully ready for discharge in the next day or 2.
--- NOTE | 2016-07-18 12:00 | P.PN ---
Subjective This is a 41-year-old male patient of Dr. Echols with a past medical history of ulcerative colitis status post subtotal colectomy and ileostomy in October 2012, LAP-BAND surgery done by Dr. More. Patient states he has been on Remicade and other medications in the past for ulcerative colitis. Patient states that he was in [place] for 1 week and came home on Tuesday. On Tuesday and Tuesday he started having a sore throat and he lost his voice. Then he started having watery stool from his ileostomy to the point he had it empty it every 5 minutes and it was coming out faster than he could replace. This went on all day and up having to leave work. He went home and drink Gatorade and tried to drink as much as he could but it kept getting worse and continued to be watery with copious amounts. He also complains of abdominal pain and nausea without vomiting. He came into [facility] emergency center. Chest x-ray showed no acute cardiopulmonary disease. CAT scan of the abdomen and pelvis which revealed possible low-grade or incomplete small bowel obstruction not excluded. Previous gastric banding with mild distal esophageal wall thickening that may represent mild esophagitis. Mild splenomegaly. White count was 11.1, hemoglobin 16.4, electrolytes within normal limits. Urinalysis negative. Influenza A and B negative. C. difficile toxin negative.. Total bilirubin 1.7. Patient was placed nothing by mouth and started on IV fluids, Zofran for nausea, Dilaudid for pain control and consult with Dr. More. 07/16: Patient continues to have tenderness to the abdomen but a little bit better from yesterday. NG tube has been placed and has had significant output from this. Abdominal x-rays shows no evidence of bowel obstruction. Patient has been seen by Dr. More. 07/17: Patient is feeling better today. He is having more normal stools from his ileostomy. He denies noting any blood in the stool. Dr. Brandon ernandez ordered for NG tube to be clamped and may end up being just continued this afternoon and start clear liquid diet. 07/18: Patient is tolerating clear liquid diet which will be advanced to soft for lunch today. NG tube was removed yesterday. He denies any nausea. Output from ileostomy is liquid. In general, he is feeling much improved. Objective - Vital Signs Vital signs: Vital Signs Temp 99.7 F H 07/17/16 07:00 Pulse 75 07/17/16 07:00 Resp 16 07/17/16 07:00 BP 120/70 07/17/16 07:00 Pulse Ox 95 07/17/16 07:00 Intake & Output 07/16/16 07/17/16 07/17/16 18:59 06:59 18:59 Intake Total 1200 1725 Output Total 700 175 Balance 500 1550 Weight 154.221 kg Intake: IV 1200 Sodium Chloride 0.9% 1, 1200 000 ml @ 150 mls/hr IV . Q6H40M VIDA Rx#:[id number] Intake, IV Titration 1725 Amount D5-0.45% NaCl with KCl 1725 20Meq/l 1,000 ml @ 150 mls/hr IV .Q6H40M VIDA Rx# :[id number] Output: Gastric Drainage 700 175 Other: Voiding Method Toilet Toilet Toilet # Voids 1 - Exam Gen: This is a 41-year-old morbidly obese male. He is in bed and appears to be slightly uncomfortable. No acute distress. HEENT: Head is atraumatic, normocephalic. Pupils equal, round. Sclerae is anicteric. Conjunctiva slightly pale. Mucous members of the mouth are somewhat dry. No thrush noted. NECK: Supple. No JVD. No lymphadenopathy. No thyromegaly. LUNGS: Clear to auscultation. No wheezes or rhonchi. No intercostal retractions. HEART: Regular rate and rhythm. No murmur. ABDOMEN: Soft. Bowel sounds are present. No masses. Generalized tenderness. Ileostomy to the right lower quadrant. Stoma beefy red. EXTREMITIES: No pedal edema. No calf tenderness. Dorsalis pedis +2 bilaterally. NEUROLOGICAL: Patient is awake, alert and oriented x3. Cranial nerves 2 through 12 are grossly intact. - Labs CBC & Chem 7: 07/16/16 07:04 07/16/16 07:03 Assessment and Plan Plan: 1. Possible partial small bowel obstruction or ileus presenting with diarrhea and dehydration. Continue IV fluids of D5 and half-normal saline with 20 of KCl at 150 mL per hour. Continue Zofran for nausea and Dilaudid for pain. Consult with Dr. More. C. difficile toxin negative. NG tube clamped with possible removal this afternoon. Clear liquid diet. 2. History of ulcerative colitis status post subtotal colectomy and ileostomy, stable. 3. Lower extremity cramps with hypomagnesemia status post replacement. 4. Recent upper respiratory infection, pharyngitis, stable. 5. DVT prophylaxis. Heparin subcu. 6. Gastrointestinal prophylaxis. Continue Protonix. Discharge plan: Return home in the next 24-48 hours Impression and plan of care have been directed as dictated by the signing physician. Michelle Fairbanks nurse practitioner acting as scribe for signing physician. Time with Patient: Greater than 30
[2016-07-18] MEDS: BENZOCAINE/MENTHOL LOZENG 1 EACH LOZENGE MUCOUS MEM PRN (15:10)
[2016-07-18] MEDS: clonazePAM 0.5 MG TAB PO SCH (20:55)
[2016-07-19 07:17] LABS: Basophils % (A) 1 %; CH 28.2; CHCM 34.3; Eosinophils # (A) 0.2 k/uL (0-0.7); Eosinophils % (A) 3 %; HCT 42.1 % (39.0-53.0); HDW 3.15; HGB 14.6 gm/dL (13.0-17.5); Luc # (Auto) 0.17; Luc % (Auto) 3; Lymphocytes # (A) 0.5 k/uL (1.0-4.8); Lymphocytes % (A) 10 %; MCH 28.7 pg (25.0-35.0); MCHC 34.8 g/dL (31.0-37.0); MCV 82.7 fL (80.0-100.0); Monocytes # (A) 0.4 k/uL (0-1.0); Monocytes % (A) 7 %; Neutrophils # (A) 4.1 k/uL (1.3-7.7); Neutrophils % (A) 77 %; RBC 5.09 m/uL (4.30-5.90); RDW 13.8 % (11.5-15.5); WBC 5.3 k/uL (3.8-10.6); WBC (Perox) 5.56
[2016-07-19 07:28] LABS: ALT 51 U/L (21-72); AST 48 U/L (17-59); Alkaline Phosphatase 79 U/L (38-126); Anion Gap 10 mmol/L; Blood Urea Nitrogen 10 mg/dL (9-20); Calcium 9.2 mg/dL (8.4-10.2); Carbon Dioxide 26 mmol/L (22-30); Chloride 104 mmol/L (98-107); Glucose 84 mg/dL (74-99); Non-African American GFR(MDRD) >60 (>60 ml/min/1.73 sqM); Potassium 4.5 mmol/L (3.5-5.1); Sodium 140 mmol/L (137-145); Total Bilirubin 1.3 mg/dL (0.2-1.3); Total Protein 6.7 g/dL (6.3-8.2)
[2016-07-19] MEDS: HEPARIN SODIUM,PORCINE 5,000 UNIT/ML 1 ML VIAL SQ SCH ×3 (07:51→23:42)
[2016-07-19] MEDS: PANTOPRAZOLE 40 MG/10 ML VIAL IVP SCH (07:51)
[2016-07-19] MEDS: D5-0.45% NACL WITH KCL 20MEQ/L 1,000 ML IV SCH (08:42)
[2016-07-19] MEDS: IOHEXOL 350 MG/ML 25 ML BOTTLE (ORAL USE) PO PRN ×2 (10:45→11:38)
--- NOTE | 2016-07-19 12:45 | P.PN ---
Subjective This is a 41-year-old male patient of Dr. Echols with a past medical history of ulcerative colitis status post subtotal colectomy and ileostomy in October 2012, LAP-BAND surgery done by Dr. More. Patient states he has been on Remicade and other medications in the past for ulcerative colitis. Patient states that he was in [place] for 1 week and came home on Tuesday. On Tuesday and Tuesday he started having a sore throat and he lost his voice. Then he started having watery stool from his ileostomy to the point he had it empty it every 5 minutes and it was coming out faster than he could replace. This went on all day and up having to leave work. He went home and drink Gatorade and tried to drink as much as he could but it kept getting worse and continued to be watery with copious amounts. He also complains of abdominal pain and nausea without vomiting. He came into [facility] emergency center. Chest x-ray showed no acute cardiopulmonary disease. CAT scan of the abdomen and pelvis which revealed possible low-grade or incomplete small bowel obstruction not excluded. Previous gastric banding with mild distal esophageal wall thickening that may represent mild esophagitis. Mild splenomegaly. White count was 11.1, hemoglobin 16.4, electrolytes within normal limits. Urinalysis negative. Influenza A and B negative. C. difficile toxin negative.. Total bilirubin 1.7. Patient was placed nothing by mouth and started on IV fluids, Zofran for nausea, Dilaudid for pain control and consult with Dr. More. 07/16: Patient continues to have tenderness to the abdomen but a little bit better from yesterday. NG tube has been placed and has had significant output from this. Abdominal x-rays shows no evidence of bowel obstruction. Patient has been seen by Dr. More. 07/17: Patient is feeling better today. He is having more normal stools from his ileostomy. He denies noting any blood in the stool. Dr. Taylor his ordered for NG tube to be clamped and may end up being just continued this afternoon and start clear liquid diet. 07/18: Patient is tolerating clear liquid diet which will be advanced to soft for lunch today. NG tube was removed yesterday. He denies any nausea. Output from ileostomy is liquid. In general, he is feeling much improved. 07/19: Patient has had increased abdominal cramping and lots of liquidy output from his ileostomy. He is scheduled for CAT scan of the abdomen and pelvis today. Objective - Vital Signs Vital signs: Vital Signs Temp 98.2 F 07/19/16 07:00 Pulse 66 07/19/16 07:00 Resp 18 07/19/16 07:00 BP 128/77 07/19/16 07:00 Pulse Ox 97 07/18/16 23:00 Intake & Output 07/18/16 07/19/16 07/19/16 18:59 06:59 18:59 Intake Total 300 590 Balance 300 590 Weight 154.221 kg Intake: Oral 300 590 Other: Voiding Method Toilet Toilet # Voids 3 - Exam Gen: This is a 41-year-old morbidly obese male. He is in bed and appears to be slightly uncomfortable. No acute distress. HEENT: Head is atraumatic, normocephalic. Pupils equal, round. Sclerae is anicteric. Conjunctiva slightly pale. Mucous members of the mouth are somewhat dry. No thrush noted. NECK: Supple. No JVD. No lymphadenopathy. No thyromegaly. LUNGS: Clear to auscultation. No wheezes or rhonchi. No intercostal retractions. HEART: Regular rate and rhythm. No murmur. ABDOMEN: Soft. Bowel sounds are present. No masses. Generalized tenderness. Ileostomy to the right lower quadrant. Stoma beefy red. EXTREMITIES: No pedal edema. No calf tenderness. Dorsalis pedis +2 bilaterally. NEUROLOGICAL: Patient is awake, alert and oriented x3. Cranial nerves 2 through 12 are grossly intact. - Labs CBC & Chem 7: 07/19/16 06:53 07/19/16 06:51 Labs: Abnormal Lab Results - Last 24 Hours (Table) 07/19/16 Range/Units 06:53 Plt Count 135 L (150-450) k/uL Lymphocytes # 0.5 L (1.0-4.8) k/uL Assessment and Plan Plan: 1. Possible partial small bowel obstruction or ileus presenting with diarrhea and dehydration. Continue IV fluids of D5 and half-normal saline with 20 of KCl at 150 mL per hour. Continue Zofran for nausea and Dilaudid for pain. Consult with Dr. More. C. difficile toxin negative. Repeat CAT scan of the abdomen and pelvis today. 2. History of ulcerative colitis status post subtotal colectomy and ileostomy, stable. 3. Lower extremity cramps with hypomagnesemia status post replacement. 4. Recent upper respiratory infection, pharyngitis, stable. 5. DVT prophylaxis. Heparin subcu. 6. Gastrointestinal prophylaxis. Continue Protonix. Discharge plan: Return home Impression and plan of care have been directed as dictated by the signing physician. Michelle Fairbanks nurse practitioner acting as scribe for signing physician. Time with Patient: Greater than 30
--- NOTE | 2016-07-19 13:28 | CT ---
EXAMINATION TYPE: CT abdomen pelvis wo con DATE OF EXAM: 07/19/2016 12:26 PM COMPARISON: 07/15/2016 INDICATION: Generalized pain. follow up scan DLP: 1203 mGycm, Automated exposure control for dose reduction was used. CONTRAST: 0 mL of Omnipaque 300. Study performed with Oral Contrast TECHNIQUE: Axial images were obtained from above the diaphragm to the pubic rami in the axial plane a t 5 mm thick sections. Reconstructed images are reviewed on the computer in the coronal plane. FINDINGS: Limited CT sections are obtained the lung bases. The lung bases are clear. Small hiatal hernia may be present. Minimal reflux into the distal esophagus may be present. Lap band is present. Port is pre sent within the subcutaneous tissues anteriorly. CT ABDOMEN: Liver: Noncontrast imaging of the liver is unremarkable. Spleen: Noncontrast imaging of the spleen is unremarkable. Pancreas: Normal Adrenal glands: The adrenal glands are normal. Gallbladder: Surgically absent. Kidneys: No masses are evident. No hydronephrosis is present. No cysts are present. No renal stone s are evident. No hydroureter is evident. Aorta: Normal Inferior vena cava: Normal. CT PELVIS: Loops of bowel within the abdomen and pelvis are normal. There are loops of bowel lacking oral co ntrast limiting their evaluation. Colectomy has been performed. Colostomy is within the right lower q uadrant. No zone of transition is identified. No dilated small bowel loops are evident. There may be some herniation of small bowel loops into the ostomy site. Rect0-sigmoid stump is normal. Appendix: Not identified. Urinary bladder: There may be some thickening of the anterior left lateral urinary bladder wall. This is of uncertain etiology. Additional workup of this finding is recommended. Genitourinary structures: Prostate is unremarkable. Osseous structures: No suspicious lytic or sclerotic lesions. IMPRESSIONS: 1. There may be some herniation of small bowel loops into the colostomy site. No suspicious changes to suggest obstruction are evident. 2. There is some asymmetric focal wall thickening in the anterior right lateral urinary bladder. Cons ider additional workup.
--- NOTE | 2016-07-19 16:53 | P.PN ---
Subjective Principal diagnosis: Partial small bowel obstruction The patient has complaints of crampy pain last night. He states he had a large output through his ileostomy. Objective - Vital Signs Vital signs: Vital Signs Temp 98.5 F 07/19/16 14:00 Pulse 69 07/19/16 14:00 Resp 16 07/19/16 14:00 BP 116/65 07/19/16 14:00 Pulse Ox 98 07/19/16 14:00 Intake & Output 07/18/16 07/19/16 07/19/16 18:59 06:59 18:59 Intake Total 300 590 Balance 300 590 Weight 154.221 kg Intake: Oral 300 590 Other: Voiding Method Toilet Toilet # Voids 3 - Constitutional General appearance: Present: cooperative - Gastrointestinal Gastrointestinal Comment(s): Abdomen soft. There is no significant tenderness. There is a large amount of ileostomy prolapsing through his ileostomy - Labs CBC & Chem 7: 07/19/16 06:53 07/19/16 06:51 Labs: Abnormal Lab Results - Last 24 Hours (Table) 07/19/16 Range/Units 06:53 Plt Count 135 L (150-450) k/uL Lymphocytes # 0.5 L (1.0-4.8) k/uL Assessment and Plan Plan: The patient repeat CAT scan performed today there is no evidence of any bowel structure however there is a parastomal hernia. I wonder if the parastomal hernia is causing intermittent obstruction. I will discuss this with the patient.
[2016-07-19] MEDS: clonazePAM 0.5 MG TAB PO SCH (20:55)
[2016-07-20 01:16] VITALS: RESP 16
[2016-07-20 08:22] VITALS: BP 104/70; PULSE 45; TEMP 98
[2016-07-20] MEDS: PANTOPRAZOLE 40 MG/10 ML VIAL IVP SCH ×2 (08:51→08:53)
[2016-07-20] MEDS: HEPARIN SODIUM,PORCINE 5,000 UNIT/ML 1 ML VIAL SQ SCH (08:52)
--- NOTE | 2016-07-20 13:37 | P.DS ---
Providers Date of admission: 07/15/16 02:47 Expected date of discharge: 07/20/16 Attending physician: Jc Echols Primary care physician: Jc Echols [facility] Course: Is a 41-year-old male who is admitted to the hospital with complaints of partial small bowel structure. Patient underwent several CAT scans. He is found to have a parastomal hernia. Please see hospital chart for details. Patient Condition at Discharge: Good Plan - Discharge Summary Discharge Medication List Ascorbic Acid [Vitamin C] 500 mg PO DAILY 07/14/16 [History] Calcium/Magnesium/Zinc [Acykrta-Zheqewasj-Rkzp Tablet] 1 tab PO DAILY 07/14/16 [ History] Doxycycline Hyclate 10 mg PO DAILY 07/14/16 [History] clonazePAM [KlonoPIN] 0.5 mg PO HS 07/14/16 [History] Follow up Appointment(s)/Referral(s): Jc Echols MD [Primary Care Provider] - 1-2 days Kal More MD [STAFF PHYSICIAN] - 1 Week Discharge Disposition: HOME SELF-CARE
--- NOTE | 2016-07-22 08:56 | P.DS ---
Providers Date of admission: 07/15/16 02:47 Expected date of discharge: 07/20/16 Attending physician: Jc Echols Primary care physician: [facility] Hospital Course: This is a 41-year-old male patient of Dr. Echols with a past medical history of ulcerative colitis status post subtotal colectomy and ileostomy in October 2012, LAP-BAND surgery done by Dr. More. Patient states he has been on Remicade and other medications in the past for ulcerative colitis. Patient states that he was in [place] for 1 week and came home on Tuesday. On Tuesday and Tuesday he started having a sore throat and he lost his voice. Then he started having watery stool from his ileostomy to the point he had it empty it every 5 minutes and it was coming out faster than he could replace. This went on all day and up having to leave work. He went home and drink Gatorade and tried to drink as much as he could but it kept getting worse and continued to be watery with copious amounts. He also complains of abdominal pain and nausea without vomiting. He came into [facility] emergency [facility]. Chest x-ray showed no acute cardiopulmonary disease. CAT scan of the abdomen and pelvis which revealed possible low-grade or incomplete small bowel obstruction not excluded. Previous gastric banding with mild distal esophageal wall thickening that may represent mild esophagitis. Mild splenomegaly. White count was 11.1, hemoglobin 16.4, electrolytes within normal limits. Urinalysis negative. Influenza A and B negative. C. difficile toxin negative.. Total bilirubin 1.7. Patient was placed nothing by mouth and started on IV fluids, Zofran for nausea, Dilaudid for pain control and consult with Dr. More. 07/16: Patient continues to have tenderness to the abdomen but a little bit better from yesterday. NG tube has been placed and has had significant output from this. Abdominal x-rays shows no evidence of bowel obstruction. Patient has been seen by Dr. More. 07/17: Patient is feeling better today. He is having more normal stools from his ileostomy. He denies noting any blood in the stool. Dr. Brandon ernandez ordered for NG tube to be clamped and may end up being just continued this afternoon and start clear liquid diet. 07/18: Blood pressure is stable. Patient had some vomiting and diarrhea today. Pain medicine was increased. Zofran is available as needed for nausea and vomiting. Patient is on Lomotil. Anticipate discharge home tomorrow 07/19: Patient is status post left hip cemented hemiarthroplasty done on July 18. Repeat hemoglobin is 9.6. Patient has been started on Xarelto for DVT prophylaxis. Patient will be resumed back on Lasix. Temperature max of 99.2. Plan for discharge at [facility] most likely tomorrow 07/20: Patient had significant improvement in the past 24 hours and has been cleared by general surgery for discharge. Patient will be discharged home today in stable condition. Discharge diagnoses: 1. Partial small bowel obstruction or ileus presenting with diarrhea and dehydration. 2. History of ulcerative colitis status post subtotal colectomy and ileostomy, stable. 3. Lower extremity cramps with hypomagnesemia status post replacement. 4. Recent upper respiratory infection, pharyngitis, stable. Discharge plan: Return home Impression and plan of care have been directed as dictated by the signing physician. Michelle Fairbanks nurse practitioner acting as scribe for signing physician. Patient Condition at Discharge: Good Plan - Discharge Summary Discharge Medication List Ascorbic Acid [Vitamin C] 500 mg PO DAILY 07/14/16 [History] Calcium/Magnesium/Zinc [Ewxygaz-Pukynxoai-Kbuw Tablet] 1 tab PO DAILY 07/14/16 [ History] Doxycycline Hyclate 10 mg PO DAILY 07/14/16 [History] clonazePAM [KlonoPIN] 0.5 mg PO HS 07/14/16 [History] Follow up Appointment(s)/Referral(s): Jc Echols MD [Primary Care Provider] - 07/22/16 10:00 am (with RAISSA Allen) Kal More MD [STAFF PHYSICIAN] - 07/27/16 12:30 pm Discharge Disposition: HOME SELF-CARE
== END 2016-07-20 14:40 | disposition home or self-care (01) | DRG 390 ==
LOC: EC 21:32 → 3SUR 07-15 02:47
PROVIDERS: ADMIT Internal Medicine Geriatric Medicine; ATTEND Internal Medicine Geriatric Medicine
PROC: 0D9670Z Drainage of Stomach with Drainage Device, Via Natural or Artificial Opening (ICD-10-PCS; principal; 2016-07-15)
DX: K56.60 Unspecified intestinal obstruction (principal); E83.42 Hypomagnesemia; E86.0 Dehydration; K43.5 Parastomal hernia without obstruction or gangrene; K56.7 Ileus, unspecified; Z93.2 Ileostomy status; Z98.84 Bariatric surgery status; Z90.49 Acquired absence of other specified parts of digestive tract; Z79.899 Other long term (current) drug therapy
CPT/HCPCS: 36415; 71020; 74020; 74176; 74177; 80053; 81003; 82150; 83605; 83690; 83735; 84100; 85025; 87324; 87502; 96361; 96365; 96375; 96376; 99285

== ENCOUNTER → 2016-08-02 | Outpatient (CLI) | payer SELFPAY ==
--- NOTE | 2016-08-03 13:44 | CT ---
EXAMINATION TYPE: CT heart w calcium score DATE OF EXAM: 08/03/2016 12:09 PM COMPARISON: CT abdomen and pelvis July 19, 2016 HISTORY: Screening for cardiovascular disorder. CT DLP: Automated exposure control for dose reduction was used. CT CALCIUM SCORING Coronary calcium is a marker for plaque (fatty deposits) in a blood vessel or atherosclerosis (harden ing of the arteries). The presence and amount of calcium detected in a coronary artery by the CT sca n, indicates the presence and amount of atherosclerotic plaque. These calcium deposits appear years before the development of heart disease symptoms such as chest pain and shortness of breath. A calcium score is computed for each of the coronary arteries based upon the volume and density of th e calcium deposits. This can be referred to as your calcified plaque burden. It does not correspond directly to the percentage of narrowing in the artery but does correlate with the severity of the un derlying coronary atherosclerosis. PROCEDURE TECHNIQUE - Prospective Gating was used. Slice thickness: 3mm. Density threshold (HU): 130, Pixel threshold: 3, Algorithm: discrete. RESULTS Region Calcium Score ([place]) Volume (mm3) Mass (g) LM 0 0 0 RCA 0 0 0 LAD 0 0 0 CX 0 0 0 Total 0 0 0 TOTAL CALCIUM SCORE 0 OTHER: There is tiny pericardial effusion or thickening anteriorly. Lap band device is present below the diaphragm. Air-fluid level in the mid esophagus is noted. There is 3 mm calcified nodule in the left mid lung on axial image 60. There is similar 3 mm calcified nodule right midlung posteriorly on axial image 59. Findings are suggestive of old granulomatous disease. Cholecystectomy clips are redem onstrated on hose maker image. IMPRESSION: Calcium Score: 0 Implication: No identifiable plaque. Risk of Coronary Artery Disease: Very low, generally less than 5%.
== END | disposition home or self-care (01) ==
LOC: RADCTMAIN 13:08
PROVIDERS: ATTEND Radiology Diagnostic Radiology
DX: Z53.9 Procedure and treatment not carried out, unspecified reason (principal)

== ENCOUNTER 2016-08-12 06:00 | Inpatient (IN) | payer MEDICAID ==
[2016-08-10 15:40] VITALS: BMI 43.0
[~2016-08-12 06:00] MED LIST: LIDOCAINE 1% 20 ML VIAL (10MG/ML) FOR IV START INTRADERMA PRN; MIDAZOLAM 2 MG/2 ML VIAL IV PRN; SCOPOLAMINE 1.5MG/72HR PATCH TRANSDERM ONE; ceFAZolin 3 GM in SODIUM CHLORIDE 0.9% 100 ML IVPB ONE
[2016-08-12] MEDS: LACTATED RINGERS 1,000 ML IV SCH (06:17)
[2016-08-12] MEDS: DEXAMETHASONE SOD PHOSPHATE 10 MG/ML 1 ML VIAL IV ONE ×2 (06:22→12:40)
[2016-08-12] MEDS: ONDANSETRON 4 MG/2 ML VIAL IVP ONE ×2 (06:23→12:40)
[2016-08-12] MEDS: HEPARIN SODIUM,PORCINE 5,000 UNIT/ML 1 ML VIAL SQ ONE ×2 (07:09→12:39)
--- NOTE | 2016-08-12 08:02 | P.GSHP ---
History of Present Illness H&P Date: 08/12/16 Chief Complaint: History of partial small bowel obstruction and parastomal hernia This a 41-year-old male who's had previous subtotal colectomy for ulcerative colitis. Patient was admitted recently for a partial small bowel structure. He 's had a parastomal hernia. Patient rents today for lysis of adhesions and repair of parastomal hernia. The patient is requesting that his stoma being moved to the other side is abdominal wall. - Constitutional Constitutional: Reports as per HPI Past Medical History Past Medical History: Sleep Apnea/CPAP/BIPAP Additional Past Medical History / Comment(s): Ulcerative colitis History of Any Multi-Drug Resistant Organisms: None Reported Past Surgical History: Bariatric Surgery, Cholecystectomy, Hernia Repair Additional Past Surgical History / Comment(s): Subtotal colectomy and ileostomy in October 2012, LAP-BAND Past Anesthesia/Blood Transfusion Reactions: Postoperative Nausea & Vomiting ( PONV) Past Psychological History: No Psychological Hx Reported Smoking Status: Never smoker Past Alcohol Use History: Rare Additional Past Alcohol Use History / Comment(s): Patient is a lifelong nonsmoker. He denies any medical marijuana, marijuana, street drug or alcohol use. He lives at home with his . Past Drug Use History: None Reported - Past Family History Father Family Medical History: Myocardial Infarction (PR) Additional Family Medical History / Comment(s): Father is alive at age 67 with history of heart problems status post loop recorder with recent CVA, coronary artery disease status post stent, hyperlipidemia, hypertension. Mother Family Medical History: Deep Vein Thrombosis (DVT), Myocardial Infarction (PR) Additional Family Medical History / Comment(s): Mother is alive at age 64 with history of coronary artery disease, obesity and irritable bowel syndrome. Brother(s) Additional Family Medical History / Comment(s): Patient has 2 brothers and 1 sister with no major medical problems. Patient has one 13-year-old child with no major medical problems. Medications and Allergies Home Medications Medication Instructions Recorded Confirmed Type Ascorbic Acid [Vitamin C] 500 mg PO DAILY 07/14/16 08/10/16 History Doxycycline Hyclate 100 mg PO DAILY 07/14/16 08/12/16 History clonazePAM [KlonoPIN] 0.5 mg PO HS 07/14/16 08/12/16 History Baclofen [Lioresal] 10 mg PO TID PRN 08/10/16 08/12/16 History Hydrocodone/Acetaminophen [Platte 1 tab PO Q4HR PRN 08/10/16 08/12/16 History 5-325] Multivitamins, Thera [Multivitamin 1 tab PO DAILY 08/10/16 08/10/16 History (formulary)] Allergies Allergy/AdvReac Type Severity Reaction Status Date / Time sulfamethoxazole AdvReac Vomiting Verified 08/10/16 15:04 [From Bactrim] trimethoprim [From Bactrim] AdvReac Vomiting Verified 08/10/16 15:04 Surgical - Exam Vital Signs Temp Pulse Resp BP Pulse Ox 98.6 F 64 15 118/80 98 08/12/16 06:14 08/12/16 06:14 08/12/16 06:14 08/12/16 06:14 08/12/16 06:14 - General well developed, no distress - Eyes PERRL - ENT normal pinna - Neck no masses - Respiratory normal expansion - Cardiovascular Rhythm: regular - Abdomen Abdomen: soft, non tender (Parastomal hernia at ileostomy on the right side of umbilicus.) Assessment and Plan Plan: History of partial small bowel obstruction and parastomal hernia. Patient will undergo repair of parastomal hernia.
[2016-08-12] MEDS ORDERED: MIDAZOLAM 2 MG/2 ML VIAL ONE (08:10)
[2016-08-12] MEDS ORDERED: SUCCINYLCHOLINE CHLORIDE 100 MG/5 ML SYR IV ONE (08:10)
[2016-08-12] MEDS ORDERED: LIDOCAINE 1% INJ 10MG/ML (20 ML MDV) ONE (08:10)
[2016-08-12] MEDS ORDERED: NEOSTIGMINE 1 MG/ML 10 ML VIAL ONE (08:10)
[2016-08-12] MEDS ORDERED: GLYCOPYRROLATE 0.2 MG/ML 2 ML VIAL ONE (08:10)
[2016-08-12] MEDS ORDERED: PROPOFOL 10 MG/ML 20 ML VIAL IV ONE (08:10)
[2016-08-12] MEDS ORDERED: fentaNYL (PF) 50 MCG/ML 2 ML AMP ONE (08:10)
[2016-08-12] MEDS ORDERED: HYDROmorphone (PF) 1 MG/ML ONE (08:10)
[2016-08-12] MEDS ORDERED: ONDANSETRON 4 MG/2 ML VIAL ONE (08:10)
[2016-08-12] MEDS ORDERED: ROCURONIUM BROMIDE 10 MG/ML 10 ML VIAL IV ONE (08:10)
[2016-08-12] MEDS ORDERED: LACTATED RINGERS 1,000 ML IV ONE (08:45)
[2016-08-12] MEDS ORDERED: BUPIVACAIN-EPI 0.5%-1:200,000 30 ML VIAL SQ ONE (08:59)
[2016-08-12] MEDS ORDERED: SODIUM CHLORIDE 0.9% 50 ML with CLINDAMYCIN 600 MG IV ONE ×2 (09:14)
[2016-08-12] MEDS ORDERED: KETOROLAC 30 MG/ML 1 ML VIAL IVP PRN (10:12)
--- NOTE | 2016-08-12 10:12 | P.OP ---
Date of Procedure: 08/12/16 Preoperative Diagnosis: Parastomal hernia Partial small bowel obstruction Postoperative Diagnosis: Parastomal hernia Adhesions Procedure(s) Performed: Repair of parastomal hernia Lysis of adhesions Anesthesia: KARYNA Surgeon: Kal More Estimated Blood Loss (ml): 25 Pathology: other (Ileum) Condition: stable Disposition: PACU Description of Procedure: The patient's placed the operative table in the supine position. He received general anesthesia. His abdomen was prepped and draped in usual sterile fashion. The patient had a ileostomy to the right of the umbilicus. There was a large prolapse of the ileostomy. The ileostomy was nonreducible. At this point a midline incision was made around the umbilicus. And then the abdomen was entered. There was adhesions to the abdominal wall these were lysed with sharp dissection. Approximately 20 minutes operative time used to lyse adhesions. The ileostomy was attempted to be reduced into the abdomen however this wasn't possible due to adhesions within the parastomal hernia. At this point the terminal ileum was transected with a GI stapler. The small bowel was then run and then adhesions were lysed. There were several adhesions which may have been responsible for a partial small bowel obstruction. Once the adhesions were lysed. A suitable spot on the left abdominal wall was found for the ileostomy. This had been previously marked in the preoperative hold area a circular skin incision was made and then the subcutaneous tissues were divided and then the fascia was scored with the cautery and a cruciate incision was made on the fascia over the external oblique. And then using blunt dissection an opening was made through the posterior fascia. The ileum was then brought up through the new stoma site. The fascia was then closed with looped #1 PDS suture. A MAGALY drain is placed in the subcutaneous tissues. The skin was closed henrik. The ileostomy was matured with 3-0 Vicryl suture. And then the old ileostomy site was dissected by dividing the mucocutaneous junction and then resecting the incarcerated bowel. The fascial defect was closed with 0 Ethibond sutures. A drain was placed in the lateral aspect of the old ileostomy site. The ileostomy site was then closed henrik. Patient was sent to recovery room in stable condition.
[2016-08-12] MEDS: HYDROmorphone 1 MG/ML 1 ML SYRINGE IVP PRN ×6 (10:32→20:25)
[2016-08-12] MEDS ORDERED: METOCLOPRAMIDE 5 MG/ML 2 ML VIAL IVP ONE (10:40)
[2016-08-12] MEDS ORDERED: diphenhydrAMINE 50 MG/ML 1 ML VIAL IVP ONE (10:41)
[2016-08-12] MEDS: D5-0.45% NACL WITH KCL 20MEQ/L 1,000 ML IV SCH ×2 (11:59→20:28)
[2016-08-12 12:02] LABS: Basophils % (A) 0 %; CHCM 34.8; Eosinophils % (A) 0 %; HCT 45.1 % (39.0-53.0); HDW 3.24; HGB 15.3 gm/dL (13.0-17.5); Luc # (Auto) 0.04; Luc % (Auto) 0; Lymphocytes # (A) 0.3 k/uL (1.0-4.8); Lymphocytes % (A) 3 %; MCH 28.5 pg (25.0-35.0); MCV 83.9 fL (80.0-100.0); Mean Platelet Volume 6.6; Monocytes # (A) 0.3 k/uL (0-1.0); Monocytes % (A) 3 %; Neutrophils # (A) 10.2 k/uL (1.3-7.7); Neutrophils % (A) 94 %; RBC 5.37 m/uL (4.30-5.90); RDW 13.7 % (11.5-15.5); WBC 10.8 k/uL (3.8-10.6); WBC (Perox) 11.39
[2016-08-12 12:34] LABS: Anion Gap 11 mmol/L; Blood Urea Nitrogen 11 mg/dL (9-20); Calcium 8.7 mg/dL (8.4-10.2); Carbon Dioxide 24 mmol/L (22-30); Chloride 105 mmol/L (98-107); Glucose 145 mg/dL (74-99); Non-African American GFR(MDRD) >60 (>60 ml/min/1.73 sqM); Potassium 4.2 mmol/L (3.5-5.1); Sodium 140 mmol/L (137-145)
--- NOTE | 2016-08-12 15:21 | CDI ---
In responding to this query, please exercise your independent professional judgment. The [facility] Coding Staff and Clinical Documentation Specialists appreciate your assistance in clarifying documentation, maintaining compliance with coding guidelines, accurately documenting patients condition and capturing severity of illness. The fact that a question is asked does not imply that any particular answer is desired or expected. Communication forms are a method of clarifying documentation and are not made part of the Legal Health Record. Thank you in advance for your clarification. Last Revision, February 2015 Chyna Lockhart [address] [facility] [place] [address] Documentation Clarification Form Date: 08/12/2016 3:06:00 PM From: Felicity Velarde RN, CDS Admit Date: 08/12/2016 6:00:00 AM Patient Name: Kirt Tran Visit Number: [id number] Dr. Kal More, Per your progress notes/operative note, a debridement was performed on Adhesions to abdominal wall History/Risk Factors: 41 year old patient with history of ulcerative colitis, Subtotal Colectomy and Ileostomy October 2012, lap band Clinical Indicators: Per OP Note: "lysis of adhesions, repair parastomal hernia for partial sbo, "There was adhesions to the abdominal wall these were lysed with sharp dissection. Approximately 20 minutes operative time used to lyse adhesions.-There were several adhesions which may have been responsible for a partial small bowel obstruction" Treatment: Lysis of Adhesions, Repair Parastomal Hernia Five elements required for accurate and compliant documentation of a debridement : 1. Technique used (e.g., excisional, excised, cutting, etc.) 2. Instrument(s) used (e.g., scalpel, curette, etc.) 3. Nature of the tissue removed (e.g., necrotic, devitalized tissues, non- viable tissue, etc.) 4. Appearance and size of the wound (e.g., down to fresh bleeding tissue, 7cm x 10cm, etc.) 5. Depth of the debridement* (e.g., skin, subcutaneous tissue, fascia, muscle , bone, etc.) In order to capture the severity of condition and code the appropriate procedure could you please document the following: Excisional debridement (the removal of necrotic, devitalized tissue or slough by means of cutting away of tissue) Non-excisional debridement (the removal of necrotic, devitalized tissue or slough by means of flushing, brushing, or washing. (Irrigation) Other; with explanation for clinical findings Unable to determine (no explanation for clinical findings) Please document in your progress notes and discharge summary in order to capture severity of illness and risk of mortality. Include clinical findings that support your diagnosis. FYI: Press F11 to launch patient chart. Place X here if this finding has no clinical significance, is not applicable or if you are not able to provide any additional documentation. This is not a debridement, lysis of adhesions means cutting adhesions MTDD
--- NOTE | 2016-08-12 18:20 | P.CONS ---
History of Present Illness - Reason for Consult Consult date: 08/12/16 Medical management Requesting physician: Kal More - Chief Complaint Parastomal hernia repair - History of Present Illness This is a 41-year-old male patient of Dr. Echols with a past medical history of ulcerative colitis status post subtotal colectomy and ileostomy in October 2012, LAP-BAND surgery done by Dr. More. Patient states he has been on Remicade and other medications in the past for ulcerative colitis. Patient was admitted 07/20/2016 and discharged thereafter secondary to Partial small bowel obstruction or ileus presenting with diarrhea and dehydration. And was noted to have parastomal hernia patient is now presenting to the hospital for repair of parastomal hernia and replacement of the ileostomy site to the left side performed by Dr. More on 08/12/2016 Review of Systems Constitutional: Reports as per HPI, Denies anorexia, Denies chills, Denies chronic headaches, Denies chronic pain, Denies daytime sleepiness, Denies fatigue, Denies fever, Denies lethargy, Denies malaise, Denies night sweats, Denies poor appetite, Denies sweats, Denies weakness, Denies weight gain, Denies weight loss Ears, nose, mouth and throat: Reports as per HPI, Denies ant. neck pain, Denies bleeding gums, Denies dental pain, Denies dysphagia, Denies epistaxis, Denies headache, Denies hoarseness, Denies mouth pain, Denies nasal congestion, Denies nasal discharge, Denies neck fullness/pressure, Denies neck lump, Denies nose pain, Denies odynophagia, Denies post-nasal drip, Denies sinus pain, Denies sinus pressure, Denies swelling in mouth, Denies swelling in throat, Denies sore throat, Denies vertigo, Denies voice changes Cardiovascular: Reports as per HPI, Denies chest pain, Denies claudication, Denies decreased exercise tolerance, Denies dyspnea on exertion, Denies edema, Denies high blood pressure, Denies irregular heart beat, Denies leg edema, Denies lightheadedness, Denies orthopnea, Denies palpitations, Denies paroxysmal nocturnal dyspnea, Denies phlebitis, Denies rapid heart beat, Denies shortness of breath, Denies syncope Respiratory: Reports as per HPI, Denies congestion, Denies cough, Denies cough with sputum, Denies dyspnea, Denies excessive sputum, Denies hemoptysis, Denies home oxygen, Denies pain, Denies pain on inspiration, Denies pleurisy, Denies respiratory infections, Denies sleep apnea, Denies snoring, Denies wheezing Gastrointestinal: Reports as per HPI, Denies abdominal pain, Denies belching, Denies bloating, Denies BRBPR, Denies change in bowel habits, Denies coffee ground emesis, Denies constipation, Denies diarrhea, Denies dyspepsia, Denies early satiety, Denies excessive gas, Denies heartburn, Denies hematemesis, Denies hematochezia, Denies indigestion, Denies jaundice, Denies lactose intolerance, Denies loss of appetite, Denies melena, Denies nausea, Denies vomiting Genitourinary: Reports as per HPI, Denies decreased libido, Denies difficulties fathering child, Denies discharge, Denies dysuria, Denies erectile dysfunction, Denies flank pain, Denies genital pain, Denies genital sores, Denies hematuria, Denies impotence, Denies incontinence, Denies kidney stones, Denies nocturia, Denies polyuria, Denies testicular lump, Denies testicular pain, Denies urinary frequency, Denies urinary hesitancy, Denies urinary retention Musculoskeletal: Reports as per HPI, Denies arm numbness/tingling, Denies atrophy, Denies fractures, Denies frequent falls, Denies gait dysfunction, Denies hot joints, Denies leg numbness/tingling, Denies limitation of motion, Denies loss of height, Denies low back pain, Denies morning stiffness, Denies muscle cramps, Denies muscle weakness, Denies myalgias, Denies neck pain, Denies neck stiffness, Denies prior amputations, Denies redness of joints, Denies shooting arm pain, Denies shooting leg pain Integumentary: Reports as per HPI, Denies acne, Denies boils, Denies brittle nails, Denies change in hair/nails, Denies color changes, Denies darkening of skin, Denies depigmentation, Denies dryness, Denies foot/leg ulcers, Denies growths, Denies hirsutism, Denies lesions, Denies onychomycosis, Denies pruritus , Denies rash, Denies sores, Denies striae, Denies unusual bruising, Denies wounds Neurological: Reports as per HPI, Denies aphasia, Denies ataxia, Denies balance difficulties, Denies burning pain, Denies change in mentation, Denies change in smell/taste, Denies change in speech, Denies confusion, Denies convulsions, Denies double vision, Denies gait dysfunction, Denies head injury, Denies headaches, Denies hearing difficulties, Denies lack of coordination, Denies loss of vision, Denies memory loss, Denies migraines, Denies motor disturbance, Denies numbness, Denies paralysis, Denies paresthesias, Denies seizures, Denies sensory deficit, Denies spasticity, Denies syncope, Denies tic, Denies tingling , Denies transient paralysis, Denies tremors, Denies vertigo, Denies weakness, Denies visual changes Psychiatric: Reports as per HPI, Denies anhedonia, Denies anxiety, Denies anxiety attacks, Denies change in appetite, Denies change in libido, Denies change in sleep habits, Denies confusion, Denies depression, Denies difficulty concentrating, Denies disorientation, Denies hallucinations, Denies hopelessness , Denies hypersomnia, Denies insomnia, Denies irritability, Denies memory loss, Denies mood swings, Denies paranoia, Denies sadness/tearfulness, Denies sleep disturbances, Denies suicidal ideation Endocrine: Reports as per HPI, Denies cold intolerance, Denies deepening of the voice, Denies excessive sweating, Denies excessive thirst, Denies fatigue, Denies flushing, Denies heat intolerance, Denies high blood sugars, Denies increase in ring/shoe/hat size, Denies low blood sugars, Denies nocturia, Denies palpitations, Denies polydipsia, Denies polyphagia, Denies polyuria, Denies proptosis, Denies recent glucocorticoid use, Denies thyroid mass, Denies weight change Hematologic/Lymphatic: Reports as per HPI, Denies easy bleeding, Denies easy bruising, Denies lymphadenopathy, Denies lymphedema, Denies thrombophilia Allergic/Immunologic: Reports as per HPI, Denies allergic rhinitis, Denies anaphylaxis, Denies angioedema, Denies gluten intolerance, Denies persistent infections, Denies seasonal allergies, Denies urticaria, Denies wheezing Past Medical History Past Medical History: Sleep Apnea/CPAP/BIPAP Additional Past Medical History / Comment(s): Ulcerative colitis History of Any Multi-Drug Resistant Organisms: None Reported Past Surgical History: Bariatric Surgery, Cholecystectomy, Hernia Repair Additional Past Surgical History / Comment(s): Subtotal colectomy and ileostomy in October 2012, LAP-BAND Past Anesthesia/Blood Transfusion Reactions: Postoperative Nausea & Vomiting ( PONV) Past Psychological History: No Psychological Hx Reported Smoking Status: Never smoker Past Alcohol Use History: Rare Additional Past Alcohol Use History / Comment(s): Patient is a lifelong nonsmoker. He denies any medical marijuana, marijuana, street drug or alcohol use. He lives at home with his . Past Drug Use History: None Reported - Past Family History Father Family Medical History: Myocardial Infarction ([place]) Additional Family Medical History / Comment(s): Father is alive at age 67 with history of heart problems status post loop recorder with recent CVA, coronary artery disease status post stent, hyperlipidemia, hypertension. Mother Family Medical History: Deep Vein Thrombosis (DVT), Myocardial Infarction ([place]) Additional Family Medical History / Comment(s): Mother is alive at age 64 with history of coronary artery disease, obesity and irritable bowel syndrome. Brother(s) Additional Family Medical History / Comment(s): Patient has 2 brothers and 1 sister with no major medical problems. Patient has one 13-year-old child with no major medical problems. Medications and Allergies Home Medications Medication Instructions Recorded Confirmed Type Ascorbic Acid [Vitamin C] 500 mg PO DAILY 07/14/16 08/12/16 History Doxycycline Hyclate 100 mg PO DAILY 07/14/16 08/12/16 History clonazePAM [KlonoPIN] 0.5 mg PO HS 07/14/16 08/12/16 History Baclofen [Lioresal] 10 mg PO TID PRN 08/10/16 08/12/16 History Hydrocodone/Acetaminophen [[place] 1 tab PO Q4HR PRN 08/10/16 08/12/16 History 5-325] Multivitamins, Thera [Multivitamin 1 tab PO DAILY 08/10/16 08/12/16 History (formulary)] Allergies Allergy/AdvReac Type Severity Reaction Status Date / Time sulfamethoxazole AdvReac Vomiting Verified 08/10/16 15:04 [From Bactrim] trimethoprim [From Bactrim] AdvReac Vomiting Verified 08/10/16 15:04 Physical Exam Vitals: Vital Signs Temp Pulse Pulse Resp BP Pulse Ox 08/12/16 11:40 97.7 F 80 16 131/74 95 08/12/16 11:00 60 16 132/76 95 08/12/16 10:45 57 L 16 134/73 95 08/12/16 10:30 67 18 134/76 96 08/12/16 10:16 98.6 F 63 12 129/66 96 08/12/16 06:14 98.6 F 64 15 118/80 98 Intake and Output 08/11/16 08/12/16 08/12/16 22:59 06:59 14:59 Intake Total 600 1404 Output Total 25 Balance 600 1379 Intake: IV 600 1404 Output: Estimated Blood Loss 25 - Constitutional General appearance: cooperative, no acute distress, obese - EENT Eyes: anicteric sclerae, EOMI, PERRLA, dentition normal, normal appearance ENT: hearing grossly normal, NA/AT, normal oropharynx - Neck Neck: no lymphadenopathy, normal ROM, no other, no rigidity, no stridor, no thyromegaly - Respiratory Respiratory: bilateral: CTA, negative: diminished, dullness, rales, rhonchi - Cardiovascular Rhythm: regular Heart sounds: normal: S1, S2 Abnormal Heart Sounds: no systolic murmur, no diastolic murmur, no rub, no S3 Gallop, no S4 Gallop, no click, no other - Gastrointestinal Incision is intact, small surgical scar without any dehiscence, ileostomy is in place, General gastrointestinal: normal bowel sounds, soft - Integumentary Integumentary: normal, normal turgor - Musculoskeletal Musculoskeletal: gait normal, strength equal bilaterally - Psychiatric Psychiatric: A&O x's 3, appropriate affect, intact judgment & insight Results CBC & Chem 7: 08/12/16 11:45 08/12/16 11:45 Labs: Laboratory Results WBC 10.8 k/uL (3.8-10.6) H 08/12/16 11:45 RBC 5.37 m/uL (4.30-5.90) 08/12/16 11:45 Hgb 15.3 gm/dL (13.0-17.5) 08/12/16 11:45 Hct 45.1 % (39.0-53.0) 08/12/16 11:45 MCV 83.9 fL (80.0-100.0) 08/12/16 11:45 MCH 28.5 pg (25.0-35.0) 08/12/16 11:45 MCHC 34.0 g/dL (31.0-37.0) 08/12/16 11:45 RDW 13.7 % (11.5-15.5) 08/12/16 11:45 Plt Count 164 k/uL (150-450) 08/12/16 11:45 Neutrophils % 94 % 08/12/16 11:45 Lymphocytes % 3 % 08/12/16 11:45 Monocytes % 3 % 08/12/16 11:45 Eosinophils % 0 % 08/12/16 11:45 Basophils % 0 % 08/12/16 11:45 Neutrophils # 10.2 k/uL (1.3-7.7) H 08/12/16 11:45 Lymphocytes # 0.3 k/uL (1.0-4.8) L 08/12/16 11:45 Monocytes # 0.3 k/uL (0-1.0) 08/12/16 11:45 Eosinophils # 0.0 k/uL (0-0.7) 08/12/16 11:45 Basophils # 0.0 k/uL (0-0.2) 08/12/16 11:45 Sodium 140 mmol/L (137-145) 08/12/16 11:45 Potassium 4.2 mmol/L (3.5-5.1) 08/12/16 11:45 Chloride 105 mmol/L (98-107) 08/12/16 11:45 Carbon Dioxide 24 mmol/L (22-30) 08/12/16 11:45 Anion Gap 11 mmol/L 08/12/16 11:45 BUN 11 mg/dL (9-20) 08/12/16 11:45 Creatinine 1.03 mg/dL (0.66-1.25) 08/12/16 11:45 Est GFR (MDRD) Af Amer >60 (>60 ml/min/1.73 sqM) 08/12/16 11:45 Est GFR (MDRD) Non-Af >60 (>60 ml/min/1.73 sqM) 08/12/16 11:45 Glucose 145 mg/dL (74-99) H 08/12/16 11:45 Calcium 8.7 mg/dL (8.4-10.2) 08/12/16 11:45 Assessment and Plan Plan: 1. Parastomal hernia repair with placement of new ileostomy on the left side , patient's doing well, postoperative pain is under control, patient is to be started incentive spirometry, IV hydration currently patient is on nothing by mouth with diet to be directed by general surgery 2.. 07/19/2016 prior partial small bowel obstruction or ileus resolved 3. History of ulcerative colitis status post subtotal colectomy and ileostomy, stable. His met of new ileostomy site to the left side 08/12/2016 4. Obstructive sleep apnea, asymptomatic 5. BPH without any lower tract symptomatology 6. DVT prophylaxis. Heparin subcu. 7. Gastrointestinal prophylaxis. Continue Protonix. Discharge plan: Return home
[2016-08-13] MEDS: HYDROmorphone 1 MG/ML 1 ML SYRINGE IVP PRN ×7 (01:32→19:44)
[2016-08-13] MEDS: D5-0.45% NACL WITH KCL 20MEQ/L 1,000 ML IV SCH ×3 (04:11→22:28)
[2016-08-13] MEDS: LACTATED RINGERS 1,000 ML IV SCH (05:42)
[2016-08-13] MEDS: ONDANSETRON 4 MG/2 ML VIAL IVP PRN ×2 (07:42→17:07)
[2016-08-13] MEDS: ENOXAPARIN 40 MG/0.4 ML SYRINGE SQ SCH (09:26)
--- NOTE | 2016-08-13 17:04 | P.PN ---
Subjective Patient is a 41-year-old white male with medical history for previous subtotal colectomy for ulcerative colitis, partial small bowel obstruction, and parastomal hernia. Patient presented to the hospital for elective lysis of adhesions and repair of parastomal hernia. Patient tolerated procedure well. Upon exam, patient complains of mild nausea without vomiting. Denies chills, fevers, shortness of breath, or chest pain. Patient reports some urinary hesitancy but states he is able to empty bladder but slowly. Denies dysuria or hematuria. Patient complains of incisional pain currently rated 7 out of 10, described as an ache. Patient is tolerating a clear liquid diet. Patient has been up ambulating to the bathroom and out in the ramos. Afebrile. Objective - Vital Signs Vital signs: Vital Signs Temp 98.0 F 08/13/16 15:00 Pulse 84 08/13/16 15:00 Resp 16 08/13/16 15:00 BP 136/76 08/13/16 15:00 Pulse Ox 94 L 08/13/16 15:00 Intake & Output 08/12/16 08/13/16 08/13/16 18:59 06:59 18:59 Intake Total 1404 2290 900 Output Total 1645 Balance -241 2290 900 Weight 151.953 kg Intake: IV 1404 1700 600 D5-0.45% NaCl with KCl 1700 600 20Meq/l 1,000 ml @ 125 mls/hr IV .Q8H [facility] Rx#: [id number] Oral 590 300 Output: Drainage 20 Medial Abdomen 20 Urine 1600 Straight 800 Estimated Blood Loss 25 Other: Voiding Method Self-Catheterization Toilet Toilet # Voids 2 3 - Exam GENERAL: Pt awake and alert, well-appearing, well-nourished, and in no acute distress. HEAD: Atraumatic, normocephalic. LUNGS: Breath sounds clear to auscultation bilaterally. No wheezes, rales, or rhonchi. HEART: Heart S1, S2, no S3 or S4. Regular rate and rhythm. No murmurs, rubs or gallops. ABDOMEN: Soft, mild incisional tenderness, nondistended, hypoactive bowel sounds. No guarding, no rebound. Stoma viable. Small amount of bloody drainage with no flatus in ileostomy bag. Abdominal dressings intact, old sanguinous drainage, no erythema. NEUROLOGICAL: - Labs CBC & Chem 7: 08/12/16 11:45 08/12/16 11:45 Assessment and Plan Plan: Impression: 1. Parastomal hernia status post repair of parastomal hernia. 2. Adhesions status post lysis of adhesions. Plan: Continue to monitor patient. Continue clear liquid diet. Continue supportive treatment and pain management. Continue wound and drain management. Increase activity as tolerated. Continue GI and DVT prophylaxis. Continue incentive spirometry 10 times an hour while awake. Continue to follow with medical team. Repeat CBC and BMP in a.m. The above impression and plan have been discussed and directed by Dr. More. Gregoria BRO acting as scribe for Dr. More.
[2016-08-14] MEDS: ONDANSETRON 4 MG/2 ML VIAL IVP PRN ×2 (00:09→08:04)
[2016-08-14] MEDS: HYDROmorphone 1 MG/ML 1 ML SYRINGE IVP PRN ×5 (00:09→21:03)
[2016-08-14] MEDS: D5-0.45% NACL WITH KCL 20MEQ/L 1,000 ML IV SCH ×3 (05:00→21:07)
[2016-08-14] MEDS: LACTATED RINGERS 1,000 ML IV SCH (06:32)
[2016-08-14 08:14] LABS: Basophils % (A) 0 %; CH 28.8; CHCM 33.8; Eosinophils # (A) 0.1 k/uL (0-0.7); Eosinophils % (A) 1 %; HCT 41.6 % (39.0-53.0); HDW 3.01; Luc % (Auto) 2; Lymphocytes # (A) 0.6 k/uL (1.0-4.8); Lymphocytes % (A) 5 %; MCH 28.7 pg (25.0-35.0); MCHC 33.6 g/dL (31.0-37.0); MCV 85.5 fL (80.0-100.0); Monocytes # (A) 0.7 k/uL (0-1.0); Monocytes % (A) 7 %; Neutrophils # (A) 8.8 k/uL (1.3-7.7); Neutrophils % (A) 85 %; RBC 4.87 m/uL (4.30-5.90); RDW 13.9 % (11.5-15.5); WBC 10.4 k/uL (3.8-10.6); WBC (Perox) 11.06
[2016-08-14 08:25] LABS: Anion Gap 10 mmol/L; Blood Urea Nitrogen 9 mg/dL (9-20); Calcium 8.6 mg/dL (8.4-10.2); Carbon Dioxide 26 mmol/L (22-30); Chloride 101 mmol/L (98-107); Glucose 114 mg/dL (74-99); Non-African American GFR(MDRD) >60 (>60 ml/min/1.73 sqM); Potassium 4.2 mmol/L (3.5-5.1); Sodium 137 mmol/L (137-145)
--- NOTE | 2016-08-14 09:53 | P.PN ---
Subjective Principal diagnosis: Peristomal hernia The patient is postoperative day 2 from repair of a peristomal hernia. Having some discomfort from laying in the bed. He is taking some clear liquids. He was nauseated yesterday but it's improved today. Pain is fairly well controlled. Objective - Vital Signs Vital signs: Vital Signs Temp 98.9 F 08/14/16 07:00 Pulse 99 08/14/16 07:00 Resp 16 08/14/16 07:00 BP 143/87 08/14/16 07:00 Pulse Ox 96 08/14/16 07:00 Intake & Output 08/13/16 08/14/16 08/14/16 18:59 06:59 18:59 Intake Total 900 1300 Output Total 635 Balance 900 665 Intake: IV 600 750 D5-0.45% NaCl with KCl 600 750 20Meq/l 1,000 ml @ 125 mls/hr IV .Q8H [facility] Rx#: [id number] Oral 300 550 Output: Drainage 35 Medial Abdomen 35 Urine 600 Other: Voiding Method Toilet Toilet # Voids 3 - Constitutional General appearance: Present: cooperative, no acute distress - Gastrointestinal General gastrointestinal: Present: decreased bowel sounds, soft Localized gastrointestinal: surgical scar: diffuse (Hypoactive bowel sounds the dressings intact with serosanguineous drainage. Ostomy is viable with some bloody drainage in the appliance) - Labs CBC & Chem 7: 08/14/16 07:27 08/14/16 07:27 Labs: Abnormal Lab Results - Last 24 Hours (Table) 08/14/16 08/14/16 Range/Units 07:27 07:27 Plt Count 138 L (150-450) k/uL Neutrophils # 8.8 H (1.3-7.7) k/uL Lymphocytes # 0.6 L (1.0-4.8) k/uL Glucose 114 H (74-99) mg/dL Assessment and Plan (1) Parastomal hernia Status: Acute Plan: Increase activity as tolerated. Monitor MAGALY drain and ostomy. Slowly advance his diet as the nausea tolerates. Progressing slowly.
[2016-08-14] MEDS: ENOXAPARIN 40 MG/0.4 ML SYRINGE SQ SCH (09:58)
--- NOTE | 2016-08-14 10:26 | P.PN ---
Subjective This is a 41-year-old male patient of Dr. Echols with a past medical history of ulcerative colitis status post subtotal colectomy and ileostomy in October 2012, LAP-BAND surgery done by Dr. More. Patient states he has been on Remicade and other medications in the past for ulcerative colitis. Patient was admitted 07/20/2016 and discharged thereafter secondary to Partial small bowel obstruction or ileus presenting with diarrhea and dehydration. And was noted to have parastomal hernia patient is now presenting to the hospital for repair of parastomal hernia and replacement of the ileostomy site to the left side performed by Dr. More on 08/12/201608/13: Patient is tolerating clear liquid diet. He has not passed any gas. Pain is controlled. 08/14: Chin states he had a rough night due to back pain. He is now seen in a recliner without much improvement. Lidocaine patch has been added. He has not passed gas in his colostomy. Objective - Vital Signs Vital signs: Vital Signs Temp 98.9 F 08/14/16 07:00 Pulse 99 08/14/16 07:00 Resp 16 08/14/16 07:00 BP 143/87 08/14/16 07:00 Pulse Ox 96 08/14/16 07:00 Intake & Output 08/13/16 08/14/16 08/14/16 18:59 06:59 18:59 Intake Total 900 1300 Output Total 635 Balance 900 665 Intake: IV 600 750 D5-0.45% NaCl with KCl 600 750 20Meq/l 1,000 ml @ 125 mls/hr IV .Q8H [facility] Rx#: [id number] Oral 300 550 Output: Drainage 35 Medial Abdomen 35 Urine 600 Other: Voiding Method Toilet Toilet Toilet # Voids 3 - Exam General appearance: cooperative, no acute distress, obese - EENT Eyes: anicteric sclerae, EOMI, PERRLA, dentition normal, normal appearance ENT: hearing grossly normal, NA/AT, normal oropharynx - Neck Neck: no lymphadenopathy, normal ROM, no other, no rigidity, no stridor, no thyromegaly - Respiratory Respiratory: bilateral: CTA, negative: diminished, dullness, rales, rhonchi - Cardiovascular Rhythm: regular Heart sounds: normal: S1, S2 Abnormal Heart Sounds: no systolic murmur, no diastolic murmur, no rub, no S3 Gallop, no S4 Gallop, no click, no other - Gastrointestinal Incision is intact, small surgical scar without any dehiscence, ileostomy is in place, General gastrointestinal: absent normal bowel sounds, soft - Integumentary Integumentary: normal, normal turgor - Musculoskeletal Musculoskeletal: gait normal, strength equal bilaterally - Psychiatric Psychiatric: A&O x's 3, appropriate affect, intact judgment & insight - Labs CBC & Chem 7: 08/14/16 07:27 08/14/16 07:27 Labs: Abnormal Lab Results - Last 24 Hours (Table) 08/14/16 08/14/16 Range/Units 07:27 07:27 Plt Count 138 L (150-450) k/uL Neutrophils # 8.8 H (1.3-7.7) k/uL Lymphocytes # 0.6 L (1.0-4.8) k/uL Glucose 114 H (74-99) mg/dL Assessment and Plan Plan: 1. Parastomal hernia repair with placement of new ileostomy on the left side , patient's doing well, postoperative pain is under control, patient is to be started incentive spirometry, IV hydration currently patient clear liquid diet to be directed by general surgery 2.. 07/19/2016 prior partial small bowel obstruction or ileus resolved 3. History of ulcerative colitis status post subtotal colectomy and ileostomy, stable. His met of new ileostomy site to the left side 08/12/2016 4. Obstructive sleep apnea, asymptomatic 5. BPH without any lower tract symptomatology 6. DVT prophylaxis. Heparin subcu. 7. Gastrointestinal prophylaxis. Continue Protonix. 8. Chronic back pain exacerbated by hospital bed. Lidocaine patch added. Discharge plan: Return home Impression and plan of care have been directed as dictated by the signing physician. Michelle Fairbanks nurse practitioner acting as scribe for signing physician. Time with Patient: Greater than 30
--- NOTE | 2016-08-14 10:26 | P.PN ---
Subjective This is a 41-year-old male patient of Dr. Echols with a past medical history of ulcerative colitis status post subtotal colectomy and ileostomy in October 2012, LAP-BAND surgery done by Dr. More. Patient states he has been on Remicade and other medications in the past for ulcerative colitis. Patient was admitted 07/20/2016 and discharged thereafter secondary to Partial small bowel obstruction or ileus presenting with diarrhea and dehydration. And was noted to have parastomal hernia patient is now presenting to the hospital for repair of parastomal hernia and replacement of the ileostomy site to the left side performed by Dr. More on 08/12/201608/13: Patient is tolerating clear liquid diet. He has not passed any gas. Pain is controlled. Objective - Vital Signs Vital signs: Vital Signs Temp 97.8 F 08/13/16 07:00 Pulse 63 08/13/16 07:00 Resp 20 08/13/16 07:00 BP 128/73 08/13/16 07:00 Pulse Ox 96 08/13/16 07:00 Intake & Output 08/12/16 08/13/16 08/13/16 18:59 06:59 18:59 Intake Total 1404 2290 Output Total 1645 Balance -241 2290 Weight 151.953 kg Intake: IV 1404 1700 D5-0.45% NaCl with KCl 1700 20Meq/l 1,000 ml @ 125 mls/hr IV .Q8H [facility] Rx#: [id number] Oral 590 Output: Drainage 20 Medial Abdomen 20 Urine 1600 Straight 800 Estimated Blood Loss 25 Other: Voiding Method Self-Catheterization Toilet # Voids 2 - Exam General appearance: cooperative, no acute distress, obese - EENT Eyes: anicteric sclerae, EOMI, PERRLA, dentition normal, normal appearance ENT: hearing grossly normal, NA/AT, normal oropharynx - Neck Neck: no lymphadenopathy, normal ROM, no other, no rigidity, no stridor, no thyromegaly - Respiratory Respiratory: bilateral: CTA, negative: diminished, dullness, rales, rhonchi - Cardiovascular Rhythm: regular Heart sounds: normal: S1, S2 Abnormal Heart Sounds: no systolic murmur, no diastolic murmur, no rub, no S3 Gallop, no S4 Gallop, no click, no other - Gastrointestinal Incision is intact, small surgical scar without any dehiscence, ileostomy is in place, General gastrointestinal: absent normal bowel sounds, soft - Integumentary Integumentary: normal, normal turgor - Musculoskeletal Musculoskeletal: gait normal, strength equal bilaterally - Psychiatric Psychiatric: A&O x's 3, appropriate affect, intact judgment & insight - Labs CBC & Chem 7: 08/14/16 07:27 08/14/16 07:27 Labs: Abnormal Lab Results - Last 24 Hours (Table) 08/12/16 08/12/16 Range/Units 11:45 11:45 WBC 10.8 H (3.8-10.6) k/uL Neutrophils # 10.2 H (1.3-7.7) k/uL Lymphocytes # 0.3 L (1.0-4.8) k/uL Glucose 145 H (74-99) mg/dL Assessment and Plan Plan: 1. Parastomal hernia repair with placement of new ileostomy on the left side , patient's doing well, postoperative pain is under control, patient is to be started incentive spirometry, IV hydration currently patient clear liquid diet to be directed by general surgery 2.. 07/19/2016 prior partial small bowel obstruction or ileus resolved 3. History of ulcerative colitis status post subtotal colectomy and ileostomy, stable. His met of new ileostomy site to the left side 08/12/2016 4. Obstructive sleep apnea, asymptomatic 5. BPH without any lower tract symptomatology 6. DVT prophylaxis. Heparin subcu. 7. Gastrointestinal prophylaxis. Continue Protonix. Discharge plan: Return home Impression and plan of care have been directed as dictated by the signing physician. Michelle Fairbanks nurse practitioner acting as scribe for signing physician. Time with Patient: Greater than 30
[2016-08-14] MEDS: LIDOCAINE 5% PATCH TOPICAL SCH (12:51)
[2016-08-14] MEDS ORDERED: HYDROcodone/APAP 7.5-325MG 1 EACH TAB PO PRN (14:30)
[2016-08-14] MEDS ORDERED: KETOROLAC 30 MG/ML 1 ML VIAL IVP PRN (14:31)
[2016-08-14] MEDS: HYDROcodone/APAP 7.5-325MG 1 EACH TAB PO PRN ×3 (14:49→23:36)
[2016-08-14] MEDS: METOCLOPRAMIDE 5 MG/ML 2 ML VIAL IVP PRN ×2 (14:49→21:04)
[2016-08-15] MEDS: D5-0.45% NACL WITH KCL 20MEQ/L 1,000 ML IV SCH ×2 (04:15→14:07)
[2016-08-15] MEDS: HYDROcodone/APAP 7.5-325MG 1 EACH TAB PO PRN ×5 (04:15→21:28)
[2016-08-15] MEDS: METOCLOPRAMIDE 5 MG/ML 2 ML VIAL IVP PRN ×2 (04:16→13:11)
[2016-08-15] MEDS: LACTATED RINGERS 1,000 ML IV SCH (06:28)
[2016-08-15 07:34] LABS: Basophils % (A) 0 %; CH 29.3; CHCM 34.3; Eosinophils # (A) 0.1 k/uL (0-0.7); Eosinophils % (A) 1 %; HCT 49.1 % (39.0-53.0); HDW 3.08; HGB 16.4 gm/dL (13.0-17.5); Luc # (Auto) 0.25; Luc % (Auto) 2; Lymphocytes # (A) 0.6 k/uL (1.0-4.8); Lymphocytes % (A) 5 %; MCH 28.6 pg (25.0-35.0); MCHC 33.4 g/dL (31.0-37.0); MCV 85.7 fL (80.0-100.0); Monocytes # (A) 1.1 k/uL (0-1.0); Monocytes % (A) 8 %; Neutrophils # (A) 11.5 k/uL (1.3-7.7); Neutrophils % (A) 85 %; RBC 5.73 m/uL (4.30-5.90); RDW 14.2 % (11.5-15.5); WBC 13.6 k/uL (3.8-10.6); WBC (Perox) 13.49
[2016-08-15] MEDS: LIDOCAINE 5% PATCH TOPICAL SCH (08:26)
[2016-08-15] MEDS: ENOXAPARIN 40 MG/0.4 ML SYRINGE SQ SCH (08:26)
--- NOTE | 2016-08-15 09:11 | P.PN ---
Subjective Principal diagnosis: Peristomal hernia The patient is seen on rounds. He's feeling better than last night. He was having quite a bit of pain which is better controlled with oral pain medication. His ostomy has began working well. He is tolerating a full liquid diet. Objective - Vital Signs Vital signs: Vital Signs Temp 97.8 F 08/15/16 07:00 Pulse 122 H 08/15/16 07:00 Resp 18 08/15/16 07:00 BP 163/99 08/15/16 07:00 Pulse Ox 95 08/15/16 07:00 Intake & Output 08/14/16 08/15/16 08/15/16 18:59 06:59 18:59 Intake Total 1940 Output Total 220 5 Balance -220 1935 Intake: IV 750 D5-0.45% NaCl with KCl 750 20Meq/l 1,000 ml @ 125 mls/hr IV .Q8H [facility] Rx#: [id number] Oral 1190 Output: Drainage 20 5 Medial Abdomen 20 5 Urine 200 Other: Voiding Method Toilet Toilet # Voids 1 2 - Constitutional General appearance: Present: cooperative - Gastrointestinal General gastrointestinal: Present: normal bowel sounds, soft Localized gastrointestinal: surgical scar: midline (The drain is serosanguineous. The dressing shows serosanguineous drainage and had been changed yesterday. The ostomies are pink and viable.) - Labs CBC & Chem 7: 08/15/16 07:08 08/14/16 07:27 Labs: Abnormal Lab Results - Last 24 Hours (Table) 08/15/16 Range/Units 07:08 WBC 13.6 H (3.8-10.6) k/uL Neutrophils # 11.5 H (1.3-7.7) k/uL Lymphocytes # 0.6 L (1.0-4.8) k/uL Monocytes # 1.1 H (0-1.0) k/uL Assessment and Plan (1) Parastomal hernia Status: Acute Plan: Decrease rate of his IV fluids. Advance his diet as tolerated. Progressing well.
--- NOTE | 2016-08-15 11:48 | P.PN ---
Subjective This is a 41-year-old male patient of Dr. Echols with a past medical history of ulcerative colitis status post subtotal colectomy and ileostomy in October 2012, LAP-BAND surgery done by Dr. More. Patient states he has been on Remicade and other medications in the past for ulcerative colitis. Patient was admitted 07/20/2016 and discharged thereafter secondary to Partial small bowel obstruction or ileus presenting with diarrhea and dehydration. And was noted to have parastomal hernia patient is now presenting to the hospital for repair of parastomal hernia and replacement of the ileostomy site to the left side performed by Dr. More on 08/12/2016 5: Patient is tolerating clear liquid diet. He has not passed any gas. Pain is controlled. 08/14: Patient states he had a rough night due to back pain. He is now seen in a recliner without much improvement. Lidocaine patch has been added. He has not passed gas in his colostomy. 08/15: Patient states that he is feeling much better today. Dr. Taylor adjusted his pain medicines yesterday with improvement. He has had good output from his colostomy almond due to leak bag is been changed. IV fluids will be decreased to 75 mL per hour. Full liquid diet is to start at lunch today. Objective - Vital Signs Vital signs: Vital Signs Temp 97.8 F 08/15/16 07:00 Pulse 122 H 08/15/16 07:00 Resp 18 08/15/16 07:00 BP 163/99 08/15/16 07:00 Pulse Ox 95 08/15/16 07:00 Intake & Output 08/14/16 08/15/16 08/15/16 18:59 06:59 18:59 Intake Total 1940 Output Total 220 5 100 Balance -220 1935 -100 Intake: IV 750 D5-0.45% NaCl with KCl 750 20Meq/l 1,000 ml @ 125 mls/hr IV .Q8H [facility] Rx#: [id number] Oral 1190 Output: Drainage 20 5 Medial Abdomen 20 5 Urine 200 Stool 100 Other: Voiding Method Toilet Toilet Toilet # Voids 1 2 - Exam General appearance: cooperative, no acute distress, obese - EENT Eyes: anicteric sclerae, EOMI, PERRLA, dentition normal, normal appearance ENT: hearing grossly normal, NA/AT, normal oropharynx - Neck Neck: no lymphadenopathy, normal ROM, no other, no rigidity, no stridor, no thyromegaly - Respiratory Respiratory: bilateral: CTA, negative: diminished, dullness, rales, rhonchi - Cardiovascular Rhythm: regular Heart sounds: normal: S1, S2 Abnormal Heart Sounds: no systolic murmur, no diastolic murmur, no rub, no S3 Gallop, no S4 Gallop, no click, no other - Gastrointestinal Incision is intact, small surgical scar without any dehiscence, ileostomy is in place, General gastrointestinal: normal bowel sounds, soft - Integumentary Integumentary: normal, normal turgor - Musculoskeletal Musculoskeletal: gait normal, strength equal bilaterally - Psychiatric Psychiatric: A&O x's 3, appropriate affect, intact judgment & insight - Labs CBC & Chem 7: 08/15/16 07:08 08/14/16 07:27 Labs: Abnormal Lab Results - Last 24 Hours (Table) 08/15/16 Range/Units 07:08 WBC 13.6 H (3.8-10.6) k/uL Neutrophils # 11.5 H (1.3-7.7) k/uL Lymphocytes # 0.6 L (1.0-4.8) k/uL Monocytes # 1.1 H (0-1.0) k/uL Assessment and Plan Plan: 1. Parastomal hernia repair with placement of new ileostomy on the left side , patient's doing well, postoperative pain is under control, patient is to be started incentive spirometry, IV hydration currently patient full liquid diet to be directed by general surgery 2.. 07/19/2016 prior partial small bowel obstruction or ileus resolved 3. History of ulcerative colitis status post subtotal colectomy and ileostomy, stable. His met of new ileostomy site to the left side 08/12/2016 4. Obstructive sleep apnea, asymptomatic 5. BPH without any lower tract symptomatology 6. DVT prophylaxis. Heparin subcu. 7. Gastrointestinal prophylaxis. Continue Protonix. Discharge plan: Return home Impression and plan of care have been directed as dictated by the signing physician. Michelle Fairbanks nurse practitioner acting as scribe for signing physician.
[2016-08-16 01:05] VITALS: RESP 16
[2016-08-16] MEDS: HYDROcodone/APAP 7.5-325MG 1 EACH TAB PO PRN ×2 (01:22→05:47)
[2016-08-16 07:42] LABS: Basophils % (A) 0 %; CH 28.7; CHCM 33.4; Eosinophils # (A) 0.3 k/uL (0-0.7); Eosinophils % (A) 3 %; HCT 42.3 % (39.0-53.0); HDW 3.06; HGB 13.8 gm/dL (13.0-17.5); Luc % (Auto) 2; Lymphocytes # (A) 0.5 k/uL (1.0-4.8); Lymphocytes % (A) 5 %; MCH 28.3 pg (25.0-35.0); MCHC 32.7 g/dL (31.0-37.0); MCV 86.4 fL (80.0-100.0); Mean Platelet Volume 6.8; Monocytes # (A) 0.6 k/uL (0-1.0); Monocytes % (A) 6 %; Neutrophils # (A) 8.6 k/uL (1.3-7.7); Neutrophils % (A) 85 %; RBC 4.89 m/uL (4.30-5.90); WBC 10.2 k/uL (3.8-10.6); WBC (Perox) 9.89
[2016-08-16 08:27] VITALS: BP 128/71; TEMP 97.6
[2016-08-16] MEDS: LACTATED RINGERS 1,000 ML IV SCH (08:48)
[2016-08-16] MEDS: ENOXAPARIN 40 MG/0.4 ML SYRINGE SQ SCH (08:49)
[2016-08-16] MEDS: LIDOCAINE 5% PATCH TOPICAL SCH (08:49)
[2016-08-16] MEDS: D5-0.45% NACL WITH KCL 20MEQ/L 1,000 ML IV SCH (08:53)
[2016-08-16 11:10] VITALS: PULSE 104
--- NOTE | 2016-08-16 13:18 | P.PN ---
Subjective This is a 41-year-old male patient of Dr. Echols with a past medical history of ulcerative colitis status post subtotal colectomy and ileostomy in October 2012, LAP-BAND surgery done by Dr. More. Patient states he has been on Remicade and other medications in the past for ulcerative colitis. Patient was admitted 07/20/2016 and discharged thereafter secondary to Partial small bowel obstruction or ileus presenting with diarrhea and dehydration. And was noted to have parastomal hernia patient is now presenting to the hospital for repair of parastomal hernia and replacement of the ileostomy site to the left side performed by Dr. More on 08/12/201608/13: Patient is tolerating clear liquid diet. He has not passed any gas. Pain is controlled. 08/14: Patient states he had a rough night due to back pain. He is now seen in a recliner without much improvement. Lidocaine patch has been added. He has not passed gas in his colostomy. 08/15: Patient states that he is feeling much better today. Dr. Taylor adjusted his pain medicines yesterday with improvement. He has had good output from his colostomy almond due to leak bag is been changed. IV fluids will be decreased to 75 mL per hour. Full liquid diet is to start at lunch today. 08/16: Diet to be advanced to soft. White count and hemoglobin are within normal limits. He has serosanguineous drainage from MAGALY drain which may go home with him. He is having liquid brown output from his colostomy without any leaks. Pain is controlled today. Possible discharge home today. Objective - Vital Signs Vital signs: Vital Signs Temp 97.6 F 08/16/16 07:00 Pulse 104 H 08/16/16 08:00 Resp 16 08/16/16 08:00 BP 128/71 08/16/16 07:00 Pulse Ox 95 08/16/16 07:00 Intake & Output 08/15/16 08/16/16 08/16/16 18:59 06:59 18:59 Intake Total 990 Output Total 100 100 Balance -100 990 -100 Intake: Intake, IV Titration 400 Amount D5-0.45% NaCl with KCl 400 20Meq/l 1,000 ml @ 50 mls /hr IV .Q20H [facility] Rx#: [id number] Oral 590 Output: Stool 100 100 Other: Voiding Method Toilet Toilet Toilet # Voids 2 2 # Bowel Movements 2 - Exam General appearance: cooperative, no acute distress, obese - EENT Eyes: anicteric sclerae, EOMI, PERRLA, dentition normal, normal appearance ENT: hearing grossly normal, NA/AT, normal oropharynx - Neck Neck: no lymphadenopathy, normal ROM, no other, no rigidity, no stridor, no thyromegaly - Respiratory Respiratory: bilateral: CTA, negative: diminished, dullness, rales, rhonchi - Cardiovascular Rhythm: regular Heart sounds: normal: S1, S2 Abnormal Heart Sounds: no systolic murmur, no diastolic murmur, no rub, no S3 Gallop, no S4 Gallop, no click, no other - Gastrointestinal Incision is intact, small surgical scar without any dehiscence, ileostomy is in place, General gastrointestinal: normal bowel sounds, soft - Integumentary Integumentary: normal, normal turgor - Musculoskeletal Musculoskeletal: gait normal, strength equal bilaterally - Psychiatric Psychiatric: A&O x's 3, appropriate affect, intact judgment & insight - Labs CBC & Chem 7: 08/16/16 07:06 08/14/16 07:27 Labs: Abnormal Lab Results - Last 24 Hours (Table) 08/16/16 Range/Units 07:06 Neutrophils # 8.6 H (1.3-7.7) k/uL Lymphocytes # 0.5 L (1.0-4.8) k/uL Assessment and Plan Plan: 1. Parastomal hernia repair with placement of new ileostomy on the left side , patient's doing well, postoperative pain is under control, patient is to be started incentive spirometry, IV hydration currently patient soft diet to be directed by general surgery 2.. 07/19/2016 prior partial small bowel obstruction or ileus resolved 3. History of ulcerative colitis status post subtotal colectomy and ileostomy, stable. His met of new ileostomy site to the left side 08/12/2016 4. Obstructive sleep apnea, asymptomatic 5. BPH without any lower tract symptomatology 6. DVT prophylaxis. Heparin subcu. 7. Gastrointestinal prophylaxis. Continue Protonix. Discharge plan: Return home Impression and plan of care have been directed as dictated by the signing physician. Michelle Fairbanks nurse practitioner acting as scribe for signing physician. Time with Patient: Greater than 30
--- NOTE | 2016-08-16 14:11 | P.DS ---
Providers Date of admission: 08/12/16 06:00 Expected date of discharge: 08/16/16 Attending physician: Kal More Consults: 08/12/16 10:15 Consult Physician Routine Consulting Provider: Jc Echols Reason/Comments: Medical management Do you want consulting provider notified?: Yes Primary care physician: Jc Echols [facility] Course: Patient is a 41-year-old white male with medical history for previous subtotal colectomy for ulcerative colitis, partial small bowel obstruction, and parastomal hernia. Patient presented to the hospital for elective lysis of adhesions, repair of parastomal hernia, and replacement of ileostomy from right side to left side. Patient tolerated procedure well. patient had an uneventful postoperative course and was felt stable for discharge to home with home care including ileostomy nurse. patient will follow-up with Dr. Etienne and Dr. More in the outpatient setting. Discharge diagnosis: 1. Parastomal hernia repair with placement of new ileostomy on the left side. 2. Adhesions status post lysis of adhesions. 3. History of partial small bowel obstruction or ileus resolved 4. History of ulcerative colitis status post subtotal colectomy and ileostomy, stable. The above impression and plan have been discussed and directed by Dr. More. Gregoria BRO acting as scribe for Dr. More. Procedures: repair of parastomal hernia; lysis of adhesions Patient Condition at Discharge: Good Plan - Discharge Summary New Discharge Prescriptions: Docusate [Colace] 100 mg PO BID #20 capsule HYDROcodone/APAP 7.5-325MG [[place] 7.5-325] 1 tab PO Q4H PRN #42 tab PRN Reason: Pain Discharge Medication List Ascorbic Acid [Vitamin C] 500 mg PO DAILY 07/14/16 [History] clonazePAM [KlonoPIN] 0.5 mg PO HS 07/14/16 [History] Baclofen [Lioresal] 10 mg PO TID PRN 08/10/16 [History] Multivitamins, Thera [Multivitamin (formulary)] 1 tab PO DAILY 08/10/16 [History ] Docusate [Colace] 100 mg PO BID #20 capsule 08/13/16 [Rx] HYDROcodone/APAP 7.5-325MG [[place] 7.5-325] 1 tab PO Q4H PRN #42 tab 08/16/16 [Rx ] Follow up Appointment(s)/Referral(s): Jc Echols MD [Primary Care Provider] - 09/02/16 11:00 am [facility], [NON-STAFF] - 1 Week Kal More MD [STAFF PHYSICIAN] - 08/24/16 10:30 am Patient Instructions/Handouts: Hydrocodone/Acetaminophen (By mouth), Laxative, Stool Softeners (By mouth), Ileostomy Care (DC), Carl-Prince Drain Care (DC), Open Herniorrhaphy (DC) Activity/Diet/Wound Care/Special Instructions: No heavy lifting, pushing, or pulling items greater than 10 pounds. Soft diet Shower daily, no soaking in bath tubs, pools, or hot tubs. No driving while taking pain medication. Notify surgeon with any signs or symptoms of infection, increased pain, or not tolerating diet. Discharge Disposition: HOME SELF-CARE
== END 2016-08-16 16:15 | disposition home or self-care (01) | DRG 330 ==
LOC: 2ORWHC 06:00 → EDSTATUS 07:40 → 5ONC 10:07
PROVIDERS: ADMIT Surgery; ATTEND Surgery
PROC: 0DN80ZZ Release Small Intestine, Open Approach (ICD-10-PCS; principal; 2016-08-12 07:40)
PROC: 0JN80ZZ Release Abdomen Subcutaneous Tissue and Fascia, Open Approach (ICD-10-PCS; principal; 2016-08-12 07:40)
PROC: 0DBB0ZZ Excision of Ileum, Open Approach (ICD-10-PCS; principal; 2016-08-12 07:40)
PROC: 0WQF0ZZ Repair Abdominal Wall, Open Approach (ICD-10-PCS; principal; 2016-08-12 07:40)
PROC: 0D1B0Z4 Bypass Ileum to Cutaneous, Open Approach (ICD-10-PCS; principal; 2016-08-12 07:40)
DX: K94.19 Other complications of enterostomy (principal); K43.3 Parastomal hernia with obstruction, without gangrene; E86.0 Dehydration; G47.30 Sleep apnea, unspecified; K43.5 Parastomal hernia without obstruction or gangrene; Z82.49 Family history of ischemic heart disease and other diseases of the circulatory system; Z93.2 Ileostomy status; Z98.84 Bariatric surgery status
CPT/HCPCS: 80048; 85025; 88307

== ENCOUNTER → 2016-09-02 | Outpatient (CLI) | payer MEDICAID ==
[2016-09-02 14:16] LABS: Basophils # (A) 0.1 k/uL (0-0.2); Basophils % (A) 1 %; CH 28.8; CHCM 33.4; Eosinophils # (A) 0.3 k/uL (0-0.7); Eosinophils % (A) 3 %; HCT 44.7 % (39.0-53.0); HGB 14.8 gm/dL (13.0-17.5); Luc # (Auto) 0.12; Luc % (Auto) 1; Lymphocytes % (A) 11 %; MCH 28.7 pg (25.0-35.0); MCHC 33.2 g/dL (31.0-37.0); MCV 86.6 fL (80.0-100.0); Mean Platelet Volume 6.9; Monocytes # (A) 0.5 k/uL (0-1.0); Monocytes % (A) 5 %; Neutrophils # (A) 7.9 k/uL (1.3-7.7); Neutrophils % (A) 80 %; RBC 5.16 m/uL (4.30-5.90); WBC 9.8 k/uL (3.8-10.6); WBC (Perox) 10.15
[2016-09-02 14:33] LABS: ALT 55 U/L (21-72); AST 39 U/L (17-59); Alkaline Phosphatase 99 U/L (38-126); Anion Gap 11 mmol/L; Blood Urea Nitrogen 11 mg/dL (9-20); Calcium 9.5 mg/dL (8.4-10.2); Carbon Dioxide 27 mmol/L (22-30); Chloride 106 mmol/L (98-107); Glucose 96 mg/dL (74-99); Iron 64 ug/dL (49-181); Non-African American GFR(MDRD) >60 (>60 ml/min/1.73 sqM); Potassium 4.4 mmol/L (3.5-5.1); Sodium 144 mmol/L (137-145); Total Bilirubin 0.8 mg/dL (0.2-1.3); Total Protein 6.8 g/dL (6.3-8.2)
[2016-09-02 14:41] LABS: % Iron Saturation 22.9 % (20-50); Total Iron Binding Capacity 280 ug/dL (261-462)
== END | disposition home or self-care (01) ==
LOC: LABWHC1 13:49
PROVIDERS: ATTEND Internal Medicine Geriatric Medicine
DX: E78.00 Pure hypercholesterolemia, unspecified (principal); D50.9 Iron deficiency anemia, unspecified
CPT/HCPCS: 36415; 80053; 83540; 83550; 85025

== ENCOUNTER → 2016-12-09 | Outpatient (CLI) | payer MEDICAID ==
[2016-12-09 08:12] LABS: Basophils % (A) 1 %; CH 28.6; CHCM 34.5; Eosinophils # (A) 0.3 k/uL (0-0.7); Eosinophils % (A) 4 %; HCT 43.8 % (39.0-53.0); HDW 3.14; HGB 15.3 gm/dL (13.0-17.5); Luc # (Auto) 0.16; Luc % (Auto) 3; Lymphocytes # (A) 0.9 k/uL (1.0-4.8); Lymphocytes % (A) 14 %; MCHC 34.8 g/dL (31.0-37.0); MCV 83.3 fL (80.0-100.0); Mean Platelet Volume 7.4; Monocytes # (A) 0.3 k/uL (0-1.0); Monocytes % (A) 5 %; Neutrophils # (A) 4.7 k/uL (1.3-7.7); Neutrophils % (A) 73 %; RBC 5.26 m/uL (4.30-5.90); RDW 13.1 % (11.5-15.5); WBC 6.3 k/uL (3.8-10.6); WBC (Perox) 6.51
[2016-12-09 08:37] LABS: Anion Gap 9 mmol/L; Carbon Dioxide 29 mmol/L (22-30); Chloride 104 mmol/L (98-107); Cholesterol 120 mg/dL (<200); Glucose 92 mg/dL (74-99); Potassium 4.3 mmol/L (3.5-5.1); Sodium 142 mmol/L (137-145); Total Protein 6.6 g/dL (6.3-8.2)
[2016-12-09 08:38] LABS: ALT 30 U/L (21-72); AST 24 U/L (17-59); Alkaline Phosphatase 81 U/L (38-126); Blood Urea Nitrogen 11 mg/dL (9-20); Calcium 9.1 mg/dL (8.4-10.2); HDL Cholesterol 31 mg/dL (40-60); Non-African American GFR(MDRD) >60 (>60 ml/min/1.73 sqM); Total Bilirubin 0.7 mg/dL (0.2-1.3)
== END | disposition home or self-care (01) ==
LOC: LABWHC1 07:44
PROVIDERS: ATTEND Internal Medicine Geriatric Medicine
DX: E78.00 Pure hypercholesterolemia, unspecified (principal); D50.9 Iron deficiency anemia, unspecified; E03.8 Other specified hypothyroidism
CPT/HCPCS: 36415; 80053; 80061; 84439; 84443; 85025

== ENCOUNTER → 2017-08-02 | Outpatient (CLI) | payer MEDICAID ==
[2017-08-02 09:36] LABS: Basophils % (A) 1 %; Eosinophils # (A) 0.1 k/uL (0-0.7); Eosinophils % (A) 2 %; HCT 45.2 % (39.0-53.0); HGB 15.5 gm/dL (13.0-17.5); Lymphocytes # (A) 0.8 k/uL (1.0-4.8); Lymphocytes % (A) 13 %; MCH 28.5 pg (25.0-35.0); MCHC 34.3 g/dL (31.0-37.0); MCV 83.2 fL (80.0-100.0); Mean Platelet Volume 7.3; Monocytes # (A) 0.4 k/uL (0-1.0); Monocytes % (A) 6 %; Neutrophils # (A) 4.9 k/uL (1.3-7.7); Neutrophils % (A) 77 %; Platelet Count 182 k/uL (150-450); RBC 5.43 m/uL (4.30-5.90); WBC 6.4 k/uL (3.8-10.6)
[2017-08-02 09:48] LABS: ALT 30 U/L (21-72); AST 41 U/L (17-59); Albumin 4.2 g/dL (3.5-5.0); Alkaline Phosphatase 81 U/L (38-126); Anion Gap 11 mmol/L; Blood Urea Nitrogen 13 mg/dL (9-20); Calcium 9.2 mg/dL (8.4-10.2); Carbon Dioxide 30 mmol/L (22-30); Chloride 102 mmol/L (98-107); Cholesterol 120 mg/dL (<200); Glucose 91 mg/dL (74-99); HDL Cholesterol 43 mg/dL (40-60); LDL Cholesterol,Calculated 54 mg/dL (0-99); Sodium 143 mmol/L (137-145); Total Bilirubin 0.8 mg/dL (0.2-1.3); Total Protein 6.8 g/dL (6.3-8.2); Triglycerides 114 mg/dL (<150)
[2017-08-02 10:03] LABS: T4, Free (Free Thyroxine) 0.76 ng/dL (0.78-2.19)
== END | disposition home or self-care (01) ==
LOC: LABMAIN 09:11
PROVIDERS: ATTEND Internal Medicine Geriatric Medicine
DX: E78.00 Pure hypercholesterolemia, unspecified (principal); I10 Essential (primary) hypertension; E03.8 Other specified hypothyroidism; R73.9 Hyperglycemia, unspecified
CPT/HCPCS: 36415; 80053; 80061; 83036; 84439; 84443; 85025

== ENCOUNTER 2018-07-31 01:53 | Emergency (ER) | payer MEDICAID ==
[2018-07-31 01:59] VITALS: TEMP 98.3
[2018-07-31] MEDS ORDERED: SODIUM CHLORIDE 0.9% 1,000 ML IV STA (02:02)
[2018-07-31] MEDS ORDERED: ASPIRIN 81 MG PO STA (02:02)
[2018-07-31 02:37] LABS: Basophils % (A) 1 %; Eosinophils # (A) 0.2 k/uL (0-0.7); Eosinophils % (A) 2 %; HCT 42.8 % (39.0-53.0); HGB 14.9 gm/dL (13.0-17.5); Lymphocytes # (A) 1.1 k/uL (1.0-4.8); Lymphocytes % (A) 14 %; MCH 29.4 pg (25.0-35.0); MCHC 34.8 g/dL (31.0-37.0); MCV 84.3 fL (80.0-100.0); Mean Platelet Volume 7.3; Monocytes # (A) 0.5 k/uL (0-1.0); Monocytes % (A) 6 %; Neutrophils # (A) 5.9 k/uL (1.3-7.7); Neutrophils % (A) 75 %; Platelet Count 175 k/uL (150-450); RBC 5.07 m/uL (4.30-5.90); RDW 13.1 % (11.5-15.5); WBC 7.9 k/uL (3.8-10.6)
[2018-07-31 02:42] LABS: INR 0.9 (<1.2); Partial Thromboplastin Time 22.4 sec (22.0-30.0); Prothrombin Time 9.9 sec (9.0-12.0)
--- NOTE | 2018-07-31 02:48 | ED ---
Chest Pain HPI - General Chief Complaint: Chest Pain Stated Complaint: chest pain Time Seen by Provider: 07/31/18 02:02 Source: patient Mode of arrival: wheelchair Limitations: no limitations - History of Present Illness Initial Comments: Kirt is a pleasant 43-year-old woman presents the emergency department today for evaluation of chest pain and pressure. Patient reports that he was in his usual state of health throughout the day yesterday. Morning he was woke from sleep with a stabbing pain in his left chest radiating to his left shoulder. Pain occurred intermittently the sharp stabbing resolved without intervention. Patient reports that in addition to that sharp stabbing pain he feels a slight pressure in his chest. He denies any associated palpitations lightheadedness diaphoresis or shortness of breath. Patient has no personal cardiac history. He has no history of hypertension, hyperlipidemia, diabetes or smoking. He does report that his grandfather had a heart attack in his 40s that his father began developing heart trouble in his 60s and his mother developed heart trouble in her 40s. - Related Data Home Medications Medication Instructions Recorded Confirmed Ascorbic Acid [Vitamin C] 500 mg PO DAILY 07/14/16 08/12/16 clonazePAM [KlonoPIN] 0.5 mg PO HS 07/14/16 08/12/16 Baclofen [Lioresal] 10 mg PO TID PRN 08/10/16 08/12/16 Multivitamins, Thera [Multivitamin 1 tab PO DAILY 08/10/16 08/12/16 (formulary)] Previous Rx's Medication Instructions Recorded Docusate [Colace] 100 mg PO BID #20 capsule 08/13/16 HYDROcodone/APAP 7.5-325MG [[place] 1 tab PO Q4H PRN #42 tab 08/16/16 7.5-325] Allergies Allergy/AdvReac Type Severity Reaction Status Date / Time sulfamethoxazole AdvReac Vomiting Verified 07/31/18 01:58 [From Bactrim] trimethoprim [From Bactrim] AdvReac Vomiting Verified 07/31/18 01:58 Review of Systems ROS Statement: Those systems with pertinent positive or pertinent negative responses have been documented in the HPI. ROS Other: All systems not noted in ROS Statement are negative. EKG Findings - EKG Comments: EKG Findings:: EKG was obtained at 2:10 AM, rate is 67 rhythm is sinus there is normal axis there are normal intervals, SD 174, QRS 116, QTC 441. There are no acute ST elevations or depressions there is no evidence of acute ischemia or infarction. Past Medical History Past Medical History: Sleep Apnea/CPAP/BIPAP Additional Past Medical History / Comment(s): Ulcerative colitis, History of Any Multi-Drug Resistant Organisms: None Reported Past Surgical History: Bariatric Surgery, Cholecystectomy, Hernia Repair Additional Past Surgical History / Comment(s): Subtotal colectomy and ileostomy in October 2012, LAP-BAND, Past Anesthesia/Blood Transfusion Reactions: Postoperative Nausea & Vomiting (PONV) Past Psychological History: No Psychological Hx Reported Smoking Status: Never smoker Past Alcohol Use History: None Reported Past Drug Use History: None Reported - Past Family History Father Family Medical History: Myocardial Infarction ([place]) Additional Family Medical History / Comment(s): Father is alive at age 67 with history of heart problems status post loop recorder with recent CVA, coronary artery disease status post stent, hyperlipidemia, hypertension. Mother Family Medical History: Deep Vein Thrombosis (DVT), Myocardial Infarction ([place]) Additional Family Medical History / Comment(s): Mother is alive at age 64 with history of coronary artery disease, obesity and irritable bowel syndrome. Brother(s) Additional Family Medical History / Comment(s): Patient has 2 brothers and 1 sister with no major medical problems. Patient has one 13-year-old child with no major medical problems. General Exam - General Exam Comments Initial Comments: Physical Exam GENERAL: Patient is well-developed and well-nourished. Patient is nontoxic and well-hydrated and is in no distress. HENT: Normocephalic, Atraumatic. EYES: PERRL, EOMI PULMONARY: Unlabored respirations. No audible rales rhonchi or wheezing was noted. CARDIOVASCULAR: There is a regular rate and rhythm without any murmurs gallops or rubs. ABDOMEN: Soft and nontender with normal bowel sounds. Ileostomy SKIN: Skin is clear with no lesions or rashes and otherwise unremarkable. : Deferred NEUROLOGIC: Patient is alert and oriented x3. Moving all extremities spontaneously MUSCULOSKELETAL: Normal extremities with adequate strength and full range of motion. No lower extremity swelling or edema. No calf tenderness. PSYCHIATRIC: Normal psychiatric evaluation. Limitations: no limitations Limitations: no limitations Course Vital Signs 07/31/18 07/31/18 07/31/18 01:56 04:21 06:26 Temperature 98.3 F Pulse Rate 75 78 75 Respiratory 18 20 20 Rate Blood Pressure 160/98 143/90 147/93 O2 Sat by Pulse 99 99 97 Oximetry Chest Pain [facility] The patient was seen and evaluated, history was obtained from the patient, vital signs were reviewed This is a 43-year-old gentleman who presents for chest pain evaluation, not having active chest pain at the time of arrival however does have a mild pressure. HEART score - 1 for risk factors - obesity, family history Cardiac workup ordered Patient advised to report any change in chest pain so additional EKG can be obtained Patient remained chest pain-free throughout his 5 hour emergency Department stay. Repeat troponins 3 hours remained negative Based on history and physical evaluation and labs there is No evidence of ACS, pericarditis, myocarditis, pulmonary embolism, pneumothorax, pneumonia, Zoster, or esophageal perforation. Historically not abrupt in onset, tearing or ripping, pulses symmetric, no evidence of aortic dissection. At this time I feel the patient is stable for discharge home. Patient is comfortable with plan for discharge. All questions pertaining care were answered best my ability return parameters were discussed and the patient was discharged home with a plan to follow up with his primary care physician. Disposition Clinical Impression: Atypical chest pain Disposition: HOME SELF-CARE Condition: Stable Instructions (If sedation given, give patient instructions): Chest Pain (ED) Is patient prescribed a controlled substance at d/c from ED?: No Referrals: Jc Echols MD [Primary Care Provider] - 1-2 days
[2018-07-31 02:51] LABS: ALT 29 U/L (21-72); AST 28 U/L (17-59); Albumin 3.9 g/dL (3.5-5.0); Alkaline Phosphatase 86 U/L (38-126); Amylase 46 U/L (30-110); Anion Gap 6 mmol/L; Blood Urea Nitrogen 14 mg/dL (9-20); Calcium 9.3 mg/dL (8.4-10.2); Carbon Dioxide 28 mmol/L (22-30); Chloride 105 mmol/L (98-107); Glucose 99 mg/dL (74-99); Lipase 95 U/L (23-300); Sodium 139 mmol/L (137-145); Total Bilirubin 0.9 mg/dL (0.2-1.3); Total Protein 6.4 g/dL (6.3-8.2)
--- NOTE | 2018-07-31 03:19 | XR ---
EXAM: XR Chest, 2 Views CLINICAL HISTORY: ITS.REASON XR Reason: Chest Pain TECHNIQUE: Frontal and lateral views of the chest. COMPARISON: 07/14/16 chest x-ray IMPRESSION: Unchanged heart size. No consolidation or pleural effusion.
[2018-07-31 04:21] VITALS: RESP 20
[2018-07-31 06:27] VITALS: BP 147/93; PULSE 75
== END 2018-07-31 07:10 | disposition home or self-care (01) ==
LOC: EC 01:53
DX: R07.89 Other chest pain (principal); G47.30 Sleep apnea, unspecified; Z99.89 Dependence on other enabling machines and devices; Z79.899 Other long term (current) drug therapy; Z88.1 Allergy status to other antibiotic agents; Z88.2 Allergy status to sulfonamides
CPT/HCPCS: 36415; 71046; 80053; 82150; 83690; 83735; 84484; 85025; 85610; 85730; 93005; 96360; 96361; 99285

== ENCOUNTER → 2018-08-04 | Outpatient (CLI) | payer MEDICAID ==
--- NOTE | 2018-08-04 19:03 | ECHOF ---
Referral Reason:Chest Pain R07.9 MEASUREMENTS -------- HEIGHT: 182.9 cm WEIGHT: 149.7 kg BP: IVSd: 1.4 cm (0.6 - 1.1) LVIDd: 4.3 cm (3.9 - 5.3) LVPWd: 1.4 cm (0.6 - 1.1) IVSs: 1.7 cm LVIDs: 2.3 cm LVPWs: 1.8 cm LAESV Index (A-L): 32.96 ml/m Ao Diam: 3.4 cm (2.0 - 3.7) AV Cusp: 2.2 cm (1.5 - 2.6) LA Diam: 3.6 cm (2.7 - 3.8) EPSS: 1.0 cm MV E Ric: 0.77 m/s MV DecT: 199 ms MV A Ric: 1.00 m/s MV E/A Ratio: 0.76 RAP: 5.00 mmHg RVSP: 20.07 mmHg MV EF SLOPE: 107.46 mm/s (70 - 150) MV EXCURSION: 1.73 cm (> 18.000) FINDINGS -------- Sinus rhythm. This was a technically good study. The left ventricular size is normal. There is moderate concentric left ventricular hypertrophy. O verall left ventricular systolic function is normal with, an EF between 55 - 60 %. The right ventricle is normal in size. Normal LA size by volume 22+/-6 ml/m2. The right atrial size is normal. Interatrial and interventricular septum intact. The aortic valve is trileaflet and appears structurally normal. There is trace mitral regurgitation. Trace tricuspid regurgitation present. The right ventricular systolic pressure, as measured by Dopp ler, is 20.07mmHg. There is no pulmonic regurgitation present. The aortic root size is normal. Normal inferior vena cava with normal inspiratory collapse consistent with estimated right atrial pre ssure of 5 mmHg. There is no pericardial effusion. CONCLUSIONS -------- 1. Sinus rhythm. 2. This was a technically good study. 3. The left ventricular size is normal. 4. There is moderate concentric left ventricular hypertrophy. 5. Overall left ventricular systolic function is normal with, an EF between 55 - 60 %. 6. The right ventricle is normal in size. 7. Normal LA size by volume 22+/-6 ml/m2. 8. The right atrial size is normal. 9. Interatrial and interventricular septum intact. 10. The aortic valve is trileaflet and appears structurally normal. 11. There is trace mitral regurgitation. 12. Trace tricuspid regurgitation present. 13. The right ventricular systolic pressure, as measured by Doppler, is 20.07mmHg. 14. There is no pulmonic regurgitation present. 15. The aortic root size is normal. 16. Normal inferior vena cava with normal inspiratory collapse consistent with estimated right atrial pressure of 5 mmHg. 17. There is no pericardial effusion. MULTIPLE DRUM SANDER HELPER: Leann Roberts RDCS
== END | disposition home or self-care (01) ==
LOC: RADECHMAIN 13:52
PROVIDERS: ATTEND Internal Medicine
DX: I51.7 Cardiomegaly (principal); R07.9 Chest pain, unspecified
CPT/HCPCS: 93306

== ENCOUNTER 2018-08-17 08:52 | Day surgery (SDC) | payer MEDICAID ==
[2018-08-15 16:20] VITALS: BMI 43.0
[~2018-08-17 08:52] MED LIST changes: +ALPRAZolam 0.25 MG TAB PO PRN; +ALPRAZolam 0.5 MG TAB PO PRN; +ASPIRIN 325 MG TAB PO STA; +ATORVASTATIN 80 MG TAB PO STA; -LIDOCAINE 1% 20 ML VIAL (10MG/ML) FOR IV START INTRADERMA PRN; -MIDAZOLAM 2 MG/2 ML VIAL IV PRN; +NITROGLYCERIN SL TABS 0.4 MG TAB SUBLINGUAL PRN; -SCOPOLAMINE 1.5MG/72HR PATCH TRANSDERM ONE; +SODIUM CHLORIDE 0.9% 1,000 ML in EMPTY BAG 1 BAG IV ONE; -ceFAZolin 3 GM in SODIUM CHLORIDE 0.9% 100 ML IVPB ONE
[2018-08-17 09:11] VITALS: TEMP 98.2
[2018-08-17] MEDS ORDERED: VERAPAMIL 2.5 MG/ML 2 ML AMP ONE (10:21)
[2018-08-17] MEDS ORDERED: HEPARIN SODIUM 1,000 UN/ML (10ML VL) ONE (10:22)
[2018-08-17] MEDS ORDERED: LIDOCAINE 1% INJ 10MG/ML (20 ML MDV) ONE (10:22)
[2018-08-17] MEDS ORDERED: MIDAZOLAM (PF) 2 MG/2 ML VIAL IV ONE (10:32)
[2018-08-17] MEDS ORDERED: fentaNYL (PF) 50 MCG/ML 2 ML AMP ONE (10:34)
[2018-08-17] MEDS ORDERED: fentaNYL (PF) 50 MCG/ML 2 ML AMP IV ONE (10:36)
[2018-08-17] MEDS ORDERED: LIDOCAINE 1% INJ 10MG/ML (20 ML MDV) SQ ONE (10:37)
[2018-08-17] MEDS: VERAPAMIL SYRINGE (5 MG/10 ML) INTRAARTER ONE ×2 (10:38→10:49)
[2018-08-17] MEDS ORDERED: IOPAMIDOL-370 125ML BTL INJ ONE (10:51)
[2018-08-17] MEDS ORDERED: RX INFO: IV CONTRAST WAS GIVEN 1 EACH MISC MISCELLANE PRN (10:58)
[2018-08-17] MEDS ORDERED: SODIUM CHLORIDE 0.9% 1,000 ML IV SCH (11:00)
[2018-08-17 11:07] VITALS: RESP 18
--- NOTE | 2018-08-17 11:24 | CC ---
CARDIAC CATHETERIZATION REPORT DATE OF SERVICE: August 17, 2018 PERFORMING PHYSICIAN: Chet Raza MD, licensed mortgage loan officer. PROCEDURE PERFORMED: 1. Selective right and left coronary angiogram. 2. Left heart catheterization. INDICATION: This is a pleasant 43-year-old gentleman with history of hypertension and significant family history of coronary artery disease, was experiencing symptoms of chest discomfort concerning for severe underlying coronary artery disease. Because of that, a heart catheterization was advised. APPROACH: Right radial artery. COMPLICATION: None. LEVEL OF SEDATION: Moderate with sedation length of 13 minutes. PROCEDURE DESCRIPTION: After obtaining an informed consent, the patient was brought to the cardiac ear mold laboratory technician. The right radial artery was cannulated using micropuncture technique, the micropuncture wire passed easily then I placed a 6-[place] sheath in the right radial artery. After that I gave the patient 2 mg of verapamil IA and 10,000 units of heparin IV. Subsequently I did selective right and left coronary angiogram using JR4 and JL3.5 catheters. Left heart catheterization was performed using the JR4 catheter which flipped into the LV then I did pullback across aortic valve. The procedure was completed without any complication. SELECTIVE CORONARY ANGIOGRAM: 1. The right coronary artery is a large caliber vessel and it is a dominant vessel. The right coronary artery is angiographically normal. It bifurcates distally into PDA and PLV branches and both appeared to be angiographically normal. 2. The left main is angiographically normal. It bifurcates into the left circumflex and left anterior descending artery. 3. The left circumflex is a nondominant vessel. I could not visualize the AV groove circumflex in the midportion, but the circumflex before the midportion gives rise into a large OM branch which appeared to be angiographically normal. 4. The LAD: The proximal LAD appeared to be angiographically normal. The mid LAD is normal and gives rise into a large diagonal branch which seems to be normal and the LAD continues after that as a medium caliber vessel in the AV groove. HEMODYNAMICS: The left ventricular end-diastolic pressure was 12 mmHg without significant gradient across the aortic valve. CONCLUSION: 1. Normal coronary angiogram. 2. Normal left ventricular end-diastolic pressure. POSTPROCEDURE MANAGEMENT: 1. Blood pressure control. 2. Aggressive cholesterol control. 3. Weight loss. 4. Follow up with the patient. MMODL / IJN: [id number] /
--- NOTE | 2018-08-17 11:48 | LTR ---
DATE OF SERVICE: August 17, 2018. RE: Kirt Tran Dear Dr. Echols; Mr. Kirt Tran underwent today a heart catheterization that revealed normal coronaries. I want to thank you for allowing us to participate in his care and please do not hesitate to call with any questions or concern. Sincerely, MD HAILEY Chester / DI: [phone] /
[2018-08-17 12:52] VITALS: BP 134/83; PULSE 67
== END 2018-08-17 16:00 | disposition home or self-care (01) ==
LOC: CATHCVL 08:52
PROVIDERS: ATTEND Internal Medicine Interventional Cardiology
DX: R07.89 Other chest pain (principal); I10 Essential (primary) hypertension; Z82.49 Family history of ischemic heart disease and other diseases of the circulatory system; Z88.2 Allergy status to sulfonamides
CPT/HCPCS: 93458; C1894; J2001; J3010; J1644; Q9967; J2250

== ENCOUNTER → 2019-02-12 | Outpatient (CLI) | payer MEDICAID ==
[2019-02-12 16:15] VITALS: BMI 39.9
--- NOTE | 2019-02-12 16:23 | P.HPBAR ---
Bariatric H&P - History & Physicial H&P Date: 02/12/19 History & Physicial: Visit/CC: lap band follow up Patient initial contact: Initial weight: Initial weight in pounds: Height: 6 ft 3 in Initial BMI: Last weight: Current weight: 145.15 kg Current weight in pounds: 320.00 Current BMI: 39.9 [place] body weight (based on NIH guidelines): 88.904 kg Excess body weight loss: The patient is a 44 year-old M who presents for Bariatric Assessment. Patient presents today for her LAP-BAND adjustment. He's had complaints of dysphagia.. Past Medical History Past Medical History: Hypertension, Sleep Apnea/CPAP/BIPAP Additional Past Medical History / Comment(s): Ulcerative colitis, MIGRAINE HEADACHE History of Any Multi-Drug Resistant Organisms: None Reported Past Surgical History: Bariatric Surgery, Cholecystectomy, Hernia Repair Additional Past Surgical History / Comment(s): Subtotal colectomy and ileostomy in October 2012, LAP-BAND, REVISION OF ILLEOSTOMY Past Anesthesia/Blood Transfusion Reactions: Postoperative Nausea & Vomiting (PONV) Past Psychological History: No Psychological Hx Reported Smoking Status: Never smoker Past Alcohol Use History: None Reported Additional Past Alcohol Use History / Comment(s): Patient is a lifelong nonsmoker. He denies any medical marijuana, marijuana, street drug or alcohol use. He lives at home with his . Past Drug Use History: None Reported - Past Family History Father Additional Family Medical History / Comment(s): Father is alive at age 67 with history of heart problems status post loop recorder with recent CVA, coronary artery disease status post stent, hyperlipidemia, hypertension. Mother Family Medical History: Deep Vein Thrombosis (DVT), Myocardial Infarction (ID) Additional Family Medical History / Comment(s): Mother is alive at age 64 with history of coronary artery disease, obesity and irritable bowel syndrome. Brother(s) Additional Family Medical History / Comment(s): Patient has 2 brothers and 1 sister with no major medical problems. Patient has one 13-year-old child with no major medical problems. Surgical - Exam - General well developed, well nourished, no distress - Eyes PERRL - Abdomen Abdomen: soft, non tender Bariatric Assessment & Plan Plan: The patient's lap band was adjusted. He had 3.9 mL removed from his band. His band is empty. Patient then had an esophagram performed which shows no evidence of gastric prolapse or obstruction. Patient will follow-up in 4 weeks. Bariatric Checklist Checklist: Plan: Checklist: EGD: 1. Hiatal hernia: 2. H. Pylori: HgbA1c: Vitamin D: Smoking: Never smoker Primary care physician referral: Psychiatry clearance: Cardiology clearance: Sleep study: Diet journal: VTE risk score: VTE risk level: Rehab needs at discharge:
--- NOTE | 2019-02-12 17:09 | FL ---
SINGLE CONTRAST BARIUM SWALLOW: CLINICAL HISTORY: 44-year-old male with dysphagia, history of lap band for 10 years with difficulty eating and clearing the lap band. Fluid removed today. TECHNIQUE: Single contrast exam performed with 3 ounces of thin barium. Total fluoroscopy time: 44 seconds. Total images: 21. FINDINGS: Initial [employer] image shows appropriate positioning of the lap band. Cholecystectomy clips. The patient swallowed oral contrast without difficulty or delay. Esophageal peristalsis and motility are within normal limits. Laparoscopic banding device is noted to be in place and is appropriately positioned in proximal stomach, just below Gastroesophageal junction. There is good flow of contrast along the course of the lap band without obstruction. IMPRESSION: After fluid removal from the lap band, there is no appreciable obstruction to the passage of contrast . No evidence for lap band prolapse.
== END | disposition home or self-care (01) ==
LOC: BARWHC3 14:22
PROVIDERS: ATTEND Surgery
DX: Z46.51 Encounter for fitting and adjustment of gastric lap band (principal); R13.10 Dysphagia, unspecified; K95.09 Other complications of gastric band procedure
CPT/HCPCS: 74220; 99212

== ENCOUNTER → 2019-03-19 | Outpatient (CLI) | payer MEDICAID ==
[2019-03-19 15:47] VITALS: BP 162/92; PULSE 72; RESP 16; TEMP 98.8; BMI 50.2
--- NOTE | 2019-03-19 17:49 | P.HPBAR ---
Bariatric H&P - History & Physicial H&P Date: 03/19/19 History & Physicial: Visit/CC: BAND ADJ Patient initial contact: Initial weight: 145.15 kg Initial weight in pounds: 320.00 Height: 5 ft 9 in Initial BMI: 47.2 Last weight: Current weight: 154.221 kg Current weight in pounds: 340.00 Current BMI: 50.2 [place] body weight (based on NIH guidelines): 72.575 kg Excess body weight loss: The patient is a 44 year-old M who presents for Bariatric Assessment. Patient is currently to hunger. He wishes Liv adjusted. Past Medical History Past Medical History: Hypertension, Sleep Apnea/CPAP/BIPAP Additional Past Medical History / Comment(s): Ulcerative colitis, MIGRAINE HEADACHE History of Any Multi-Drug Resistant Organisms: None Reported Past Surgical History: Bariatric Surgery, Cholecystectomy, Hernia Repair Additional Past Surgical History / Comment(s): Subtotal colectomy and ileostomy in October 2012, LAP-BAND, REVISION OF ILLEOSTOMY Past Anesthesia/Blood Transfusion Reactions: Postoperative Nausea & Vomiting (PONV) Past Psychological History: No Psychological Hx Reported Smoking Status: Never smoker Past Alcohol Use History: None Reported Additional Past Alcohol Use History / Comment(s): Patient is a lifelong nonsmoker. He denies any medical marijuana, marijuana, street drug or alcohol use. He lives at home with his . Past Drug Use History: None Reported - Past Family History Father Additional Family Medical History / Comment(s): Father is alive at age 67 with history of heart problems status post loop recorder with recent CVA, coronary artery disease status post stent, hyperlipidemia, hypertension. Mother Family Medical History: Deep Vein Thrombosis (DVT), Myocardial Infarction (DE) Additional Family Medical History / Comment(s): Mother is alive at age 64 with history of coronary artery disease, obesity and irritable bowel syndrome. Brother(s) Additional Family Medical History / Comment(s): Patient has 2 brothers and 1 sister with no major medical problems. Patient has one 13-year-old child with no major medical problems. Surgical - Exam Vital Signs Temp Pulse Resp BP 98.8 F 72 16 162/92 03/19/19 15:44 03/19/19 15:44 03/19/19 15:44 03/19/19 15:44 - General well developed, well nourished, no distress - Abdomen Abdomen: soft, non tender Bariatric Assessment & Plan Plan: Patient's lap band was adjusted. He had 2 mL added to his band. He'll follow- up in one month. Bariatric Checklist Checklist: Plan: Checklist: EGD: 1. Hiatal hernia: 2. H. Pylori: HgbA1c: Vitamin D: Smoking: Never smoker Primary care physician referral: Psychiatry clearance: Cardiology clearance: Sleep study: Diet journal: VTE risk score: VTE risk level: Rehab needs at discharge:
== END | disposition home or self-care (01) ==
LOC: BARWHC3 14:44
PROVIDERS: ATTEND Surgery
DX: Z46.51 Encounter for fitting and adjustment of gastric lap band (principal); Z98.84 Bariatric surgery status; Z90.49 Acquired absence of other specified parts of digestive tract
CPT/HCPCS: 99212

== ENCOUNTER → 2019-05-10 | Outpatient (CLI) | payer MEDICAID ==
[2019-05-10 08:39] LABS: Basophils # (A) 0.1 k/uL (0-0.2); Basophils % (A) 1 %; Eosinophils # (A) 0.2 k/uL (0-0.7); Eosinophils % (A) 3 %; HCT 46.3 % (39.0-53.0); HGB 15.2 gm/dL (13.0-17.5); Lymphocytes # (A) 0.7 k/uL (1.0-4.8); Lymphocytes % (A) 11 %; MCH 27.6 pg (25.0-35.0); MCHC 32.8 g/dL (31.0-37.0); MCV 84.1 fL (80.0-100.0); Mean Platelet Volume 7.3; Monocytes # (A) 0.3 k/uL (0-1.0); Monocytes % (A) 5 %; Neutrophils # (A) 4.9 k/uL (1.3-7.7); Neutrophils % (A) 78 %; Platelet Count 193 k/uL (150-450); RDW 12.8 % (11.5-15.5); WBC 6.2 k/uL (3.8-10.6)
[2019-05-10 17:03] LABS: African American GFR (CKD) 104.9 (60.0-200.0); Albumin 4.2 g/dL (3.80-4.90); Albumin/Globulin Ratio 2.21 (1.60-3.17); Anion Gap 7.4 mmol/L (4.00-12.00); Carbon Dioxide 28.6 mmol/L (21.6-31.8); Chol/HDL Ratio 3.32; Globulin 1.9 g/dL (1.6-3.3); LDL Cholesterol,Calculated 75.6 mg/dL (0.0-131.0); Non-African American GFR(CKD) 90.5 (60.0-200.0); Potassium 4.2 mmol/L (3.5-5.5); Total Bilirubin 0.8 mg/dL (0.2-1.2); Total Protein 6.1 g/dL (6.2-8.2); VLDL Calculation 26.4 mg/dL (5.00-40.00)
[2019-05-10 17:11] LABS: T4, Free (Free Thyroxine) 0.9 ng/dL (0.80-1.80)
[2019-05-10 19:20] LABS: Hemoglobin A1C 5.2 % (4.0-6.0)
== END | disposition home or self-care (01) ==
LOC: LABWHC1 07:59
PROVIDERS: ATTEND Internal Medicine Geriatric Medicine
DX: D50.9 Iron deficiency anemia, unspecified (principal); E78.2 Mixed hyperlipidemia; E03.8 Other specified hypothyroidism; E29.1 Testicular hypofunction; R73.9 Hyperglycemia, unspecified
CPT/HCPCS: 36415; 80053; 80061; 83036; 84403; 84439; 84443; 85025

== ENCOUNTER → 2019-06-25 | Outpatient (CLI) | payer MEDICAID | END | disposition home or self-care (01) | CPT/HCPCS: 99212 ==

== ENCOUNTER → 2020-04-17 | Outpatient (CLI) | payer MEDICAID ==
[2020-04-17 08:24] LABS: Basophils % (A) 1 %; Eosinophils # (A) 0.2 k/uL (0-0.7); Eosinophils % (A) 2 %; HCT 46.4 % (39.0-53.0); HGB 15.7 gm/dL (13.0-17.5); Lymphocytes # (A) 0.9 k/uL (1.0-4.8); Lymphocytes % (A) 14 %; MCH 28.4 pg (25.0-35.0); MCHC 33.8 g/dL (31.0-37.0); MCV 84.1 fL (80.0-100.0); Mean Platelet Volume 7.3; Monocytes # (A) 0.4 k/uL (0-1.0); Monocytes % (A) 7 %; Neutrophils # (A) 4.9 k/uL (1.3-7.7); Neutrophils % (A) 75 %; Platelet Count 186 k/uL (150-450); RBC 5.51 m/uL (4.30-5.90); RDW 12.8 % (11.5-15.5); WBC 6.6 k/uL (3.8-10.6)
--- NOTE | 2020-04-17 09:10 | XR ---
EXAMINATION TYPE: XR cervical spine comp DATE OF EXAM: 04/17/2020 COMPARISON: None HISTORY: Cervicalgia TECHNIQUE: Five-view cervical spine FINDINGS: Prevertebral space is normal. Posterior spinal lamellar line is intact. Disc heights are pr eserved. Vertebral body heights are preserved. Some mild C5-6 foraminal narrowing on the right may be present. IMPRESSION: 1. Minimal degenerative changes cervical spine.
[2020-04-17 11:42] LABS: African American GFR (CKD) 75.8 (60.0-200.0); Albumin 4.3 g/dL (3.80-4.90); Albumin/Globulin Ratio 2.05 (1.60-3.17); Anion Gap 7.1 mmol/L (4.00-12.00); BUN/Creat Ratio 9.23 Ratio (12.00-20.00); Calcium 9.3 mg/dL (8.7-10.3); Carbon Dioxide 29.9 mmol/L (21.6-31.8); Chol/HDL Ratio 4.03; Globulin 2.1 g/dL (1.6-3.3); LDL Cholesterol,Calculated 73.2 mg/dL (0.0-131.0); Non-African American GFR(CKD) 65.4 (60.0-200.0); Potassium 3.9 mmol/L (3.5-5.5); Total Bilirubin 1.5 mg/dL (0.2-1.2); Total Protein 6.4 g/dL (6.2-8.2); VLDL Calculation 26.8 mg/dL (5.00-40.00)
[2020-04-17 16:38] LABS: Hemoglobin A1C 5.2 % (4.0-6.0)
== END | disposition home or self-care (01) ==
LOC: LABWHC1 07:33
PROVIDERS: ATTEND Internal Medicine Geriatric Medicine
DX: M47.812 Spondylosis without myelopathy or radiculopathy, cervical region (principal); E03.9 Hypothyroidism, unspecified; E78.00 Pure hypercholesterolemia, unspecified; D50.9 Iron deficiency anemia, unspecified; R73.9 Hyperglycemia, unspecified
CPT/HCPCS: 36415; 72050; 80053; 80061; 83036; 84439; 84443; 85025